=== PATIENT | female | born 1925 | race Caucasian/White ===

== ENCOUNTER 2017-01-29 06:29 | Day surgery (SDC) | payer MEDICARE ==
[2017-01-29] MEDS ORDERED: Sodium Chloride 0.9% 10 ML Syringe FLUSH PRN (07:00)
[2017-01-29 08:45] VITALS: BP 123/73
--- NOTE | 2017-01-29 11:25 | OR ---
DATE OF PROCEDURE: 01/29/2017 POSTOPERATIVE CARE: Postoperative care will be provided mainly at the [address] [place] [address] [facility] in conjunction with [facility]. PREOPERATIVE DIAGNOSIS: Cataract, right eye. PREOPERATIVE DIAGNOSIS: Cataract, right eye. PROCEDURE: Phacoemulsification with intraocular lens placement, right eye. ANESTHESIA: Topical and intracameral. ESTIMATED BLOOD LOSS: Minimal. COMPLICATIONS: None. PATHOLOGY SPECIMENS: None. SURGICAL FINDINGS: None. INDICATION FOR PROCEDURE: The patient is an 89-year-old female with history of a visually significant cataract in the right eye, which interfered with activities of daily living. This consisted of a nuclear sclerosis cataract. Following careful discussion of the risks, benefits and alternatives to cataract extraction with intraocular lens placement including blindness and , the patient elected to proceed, and informed, written consent was obtained prior to the procedure. DESCRIPTION OF THE PROCEDURE: The patient was previously identified, and a filiberto placed above the right eye. All sources, including the patient, indicated that the right eye was the correct eye. The patient was subsequently taken to the operating room where standard monitors were applied. The patient was then prepped and draped in the usual sterile fashion for ophthalmic surgery. Attention was first directed at the 12 o'clock position where a paracentesis port was fashioned. Shugar solution followed by Viscoat was instilled into the eye. Attention was then directed to the 8:30 position where a triplanar incision was made in a near-clear manner using a keratome. A continuous capsulorrhexis was then made using a combination of the cystotome and Utrata forceps. Hydrodissection was achieved using a balanced salt solution, and the lens rotated nicely. Phacoemulsification was then done using a modified [id number] technique without complication. Phaco time was 26.36 CDE. The remaining cortex was removed using the irrigation/aspiration handpiece. Provisc was then instilled into the eye. A Technis lens, model TM1089, at 24.0 diopters was then placed in the capsular bag using an [place] injector. The remaining viscoelastic was removed using the irrigation/aspiration forceps. All wounds were then checked and found to be watertight. The lid speculum and drapes were removed. Maxitrol ointment was placed in the patient's right eye, and the eye was shielded. The patient tolerated the procedure well. The patient was instructed to follow up tomorrow. All needle and sponge counts were correct at the end of the procedure. Daisy Root MD /[id number]
== END 2017-01-29 08:55 | disposition home or self-care (01) ==
LOC: JP.SDS 06:29
PROVIDERS: ATTEND Ophthalmology
DX: H26.9 Unspecified cataract (principal); Z95.0 Presence of cardiac pacemaker
CPT/HCPCS: 66984; C1780; J7050

== ENCOUNTER 2017-05-11 13:37 | Emergency (ER) | payer MEDICARE ==
[2017-05-11 15:36] VITALS: BP 129/69
--- NOTE | 2017-05-11 16:46 | EDM.PDOC ---
ED HPI GENERAL MEDICAL PROBLEM - General Chief Complaint: Back Pain or Injury Stated Complaint: PAIN IN LOWER BACK Time Seen by Provider: 05/11/17 16:48 Source of Information: Reports: Patient, Family History Limitations: Reports: No Limitations - History of Present Illness INITIAL COMMENTS - FREE TEXT/NARRATIVE: Pt arrived with pain in the lower lumbar area and into the rt hip. She did fall 3 weeks ago and did not have a problem until a few days ago. She was at [employer] yesterday and di alot of sitting. She had alot of pain in her low back and rt hip area. Onset: Gradual Duration: Day(s): Location: Reports: Lower Extremity, Right, Other (low back. ) Right Lower Back Pain Score (Numeric/FACES): 8 Right Hip Pain Score (Numeric/FACES): 5 - Related Data Allergies Allergy/AdvReac Type Severity Reaction Status Date / Time No Known Allergies Allergy Verified 01/29/17 06:56 Home Meds: Home Meds Aspirin [Halfprin] 81 mg PO DAILY 09/19/16 [History] Furosemide [Lasix] 20 mg PO DAILY 09/19/16 [History] Levothyroxine 75 mcg PO ACBREAKFAST 09/19/16 [History] Metoprolol Succinate [Toprol XL] 25 mg PO DAILY 09/19/16 [History] Potassium Chloride [K-Tab ER] 20 meq PO DAILY 09/19/16 [History] Simvastatin [Zocor] 40 mg PO DAILY 09/19/16 [History] Past Medical History HEENT History: Reports: Cataract, Impaired Vision Cardiovascular History: Reports: Heart Failure, High Cholesterol, Hypertension, Pacemaker Gastrointestinal History: Reports: 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: Musculoskeletal History: Reports: Arthritis Endocrine/Metabolic History: Reports: Hypothyroidism - Infectious Disease History Infectious Disease History: Reports: Measles, Mumps - Past Surgical History HEENT Surgical History: Reports: Cataract Surgery, Oral Surgery GI Surgical History: Reports: Appendectomy, Colonoscopy, EGD, Hernia Repair/ Other, Other (See Below) Endocrine Surgical History: Reports: None Musculoskeletal Surgical History: Reports: None Social & Family History - Tobacco Use Smoking Status *Q: Never Smoker Second Hand Smoke Exposure: No - Caffeine Use Caffeine Use: Reports: Coffee - Alcohol Use Days Per Week of Alcohol Use: 0 - Recreational Drug Use Recreational Drug Use: No ED ROS GENERAL - Review of Systems Review Of Systems: See Below Constitutional: Reports: No Symptoms HEENT: Reports: No Symptoms Respiratory: Reports: No Symptoms Cardiovascular: Reports: No Symptoms Endocrine: Reports: No Symptoms GI/Abdominal: Reports: No Symptoms : Reports: No Symptoms Musculoskeletal: Reports: Other (pain in her lower back. ) ED EXAM,LOWER BACK PAIN/INJURY - Physical Exam Exam: See Below Text/Narrative:: pt arrived with pain in her low back and rt hip. Exam Limited By: No Limitations General Appearance: Alert, Anxious, Moderate Distress Ears: Normal TMs Nose: Normal Inspection Throat/Mouth: Normal Inspection Head: Atraumatic Respiratory/Chest: No Respiratory Distress Cardiovascular: Regular Rate, Rhythm GI/Abdominal: Soft, Non-Tender (Female) Exam: Deferred Rectal (Female) Exam: Deferred Back Exam: Other (Pt is tender in the very low lumbar area. ) Extremities: Normal Inspection, Other ( She does not have severe pain when the hip is moved. ) Neurological: Alert Psychiatric: Normal Affect Course - Vital Signs Last Recorded V/S: Last Vital Signs Temp 36.6 C 05/11/17 14:46 Pulse 92 05/11/17 15:35 Resp 18 05/11/17 15:35 BP 129/69 05/11/17 15:35 Pulse Ox 95 05/11/17 15:35 - Orders/Labs/Meds Orders: Active Orders 24 hr Category Date Time Status Hip Min 2V or 3V w Pelvis Rt [CR] Stat Exams 05/11/17 14:55 Taken Lumbar Spine Min 4V [CR] Stat Exams 05/11/17 14:46 Taken UA W/MICROSCOPIC [URIN] Urgent Lab 05/11/17 14:47 Uncollected - Re-Assessments/Exams Free Text/Narrative Re-Assessment/Exam: 05/11/17 16:59 xrays were obtained which showed a compression change at s1 nd L2. Sh e states this pain comes and goes. Departure - Departure Time of Disposition: 16:43 Disposition: Home, Self-Care 01 Condition: Fair Clinical Impression: Compression fx, lumbar spine - Discharge Information Referrals: Fransico Vázquez MD [Primary Care Provider] - Forms: ED Department Discharge Care Plan Goals: compression fracture of the S! and L2-- use plain tylenol for pain, If poor relief try moist heat to the area and use norco 1/2 tab q6h prn for pain. 5/[address] Vázquez next week. - My Orders Last 24 Hours: My Active Orders 05/11/17 14:46 Lumbar Spine Min 4V [CR] Stat 05/11/17 14:47 UA W/MICROSCOPIC [URIN] Urgent 05/11/17 14:55 Hip Min 2V or 3V w Pelvis Rt [CR] Stat - Assessment/Plan Last 24 Hours: My Active Orders 05/11/17 14:46 Lumbar Spine Min 4V [CR] Stat 05/11/17 14:47 UA W/MICROSCOPIC [URIN] Urgent 05/11/17 14:55 Hip Min 2V or 3V w Pelvis Rt [CR] Stat
--- NOTE | 2017-05-13 09:08 | CR ---
Remote appearing fracture right inferior pubic ramus. Marked degenerative changes right hip. Right h ip is intact.
--- NOTE | 2017-05-13 09:15 | CR ---
Osteopenia. Superior endplate compression deformity L2 vertebral bodies age-indeterminate. Advanced disc height loss L5-S1. Moderate to advanced disc height loss L4-5, L3-4 and L2-3.
== END 2017-05-11 16:56 | disposition home or self-care (01) ==
LOC: JP.ED 13:37
DX: S32.029A Unspecified fracture of second lumbar vertebra, initial encounter for closed fracture (principal); H54.7 Unspecified visual loss; I11.0 Hypertensive heart disease with heart failure; I50.9 Heart failure, unspecified; E03.9 Hypothyroidism, unspecified; M19.90 Unspecified osteoarthritis, unspecified site; Z90.49 Acquired absence of other specified parts of digestive tract; Z79.82 Long term (current) use of aspirin; Z79.899 Other long term (current) drug therapy; Z98.49 Cataract extraction status, unspecified eye; Z95.0 Presence of cardiac pacemaker; Z98.890 Other specified postprocedural states; X50.1XXA Overexertion from prolonged static or awkward postures, initial encounter; W19.XXXA Unspecified fall, initial encounter
CPT/HCPCS: 72110; 72110-26; 73502-26-RT; 73502-RT; 99283; 99284

== ENCOUNTER 2017-05-21 08:18 | Inpatient (IN) | payer MEDICARE ==
[2017-05-21] MEDS ORDERED: Lactated Ringers 1,000 ML IV SCH ×2 (09:00→10:00)
--- NOTE | 2017-05-21 09:02 | EDM.PDOC ---
ED HPI GENERAL MEDICAL PROBLEM - General Chief Complaint: Abdominal Pain Stated Complaint: CAN'T SLEEP REILLY I AM BLOATED Time Seen by Provider: 05/21/17 08:54 Source of Information: Reports: Patient History Limitations: Reports: No Limitations - History of Present Illness INITIAL COMMENTS - FREE TEXT/NARRATIVE: pt is having pain in the mid tolower left abdoman. The pt is feeling quite bloated. Onset: Other (Pt has had pain for the last 3 days. ) Duration: Getting Worse, Intermittent Location: Reports: Abdomen Quality: Reports: Sharp, Stabbing Associated Symptoms: Reports: Diaphoresis, Fever/Chills, Loss of Appetite, Other (pt feels bloated. ) Abdominal Pain Score (Numeric/FACES): 10 - Related Data Allergies Allergy/AdvReac Type Severity Reaction Status Date / Time No Known Allergies Allergy Verified 05/21/17 09:52 Home Meds: Home Meds Aspirin [Halfprin] 81 mg PO DAILY 09/19/16 [History] Furosemide [Lasix] 20 mg PO DAILY 09/19/16 [History] Levothyroxine 75 mcg PO ACBREAKFAST 09/19/16 [History] Metoprolol Succinate [Toprol XL] 25 mg PO DAILY 09/19/16 [History] Potassium Chloride [K-Tab ER] 20 meq PO DAILY 09/19/16 [History] Simvastatin [Zocor] 40 mg PO DAILY 09/19/16 [History] Past Medical History HEENT History: Reports: Cataract, Impaired Vision Cardiovascular History: Reports: Heart Failure, High Cholesterol, Hypertension, Pacemaker Gastrointestinal History: Reports: None 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: Musculoskeletal History: Reports: Arthritis Endocrine/Metabolic History: Reports: Hypothyroidism - Infectious Disease History Infectious Disease History: Reports: Measles, Mumps - Past Surgical History HEENT Surgical History: Reports: Cataract Surgery, Oral Surgery GI Surgical History: Reports: Appendectomy, Colonoscopy, EGD, Hernia Repair/ Other, Other (See Below) Musculoskeletal Surgical History: Reports: None Social & Family History - Tobacco Use Smoking Status *Q: Never Smoker Second Hand Smoke Exposure: No - Caffeine Use Caffeine Use: Reports: Coffee, Soda, Tea - Alcohol Use Days Per Week of Alcohol Use: 0 - Recreational Drug Use Recreational Drug Use: No ED ROS GENERAL - Review of Systems Review Of Systems: See Below Constitutional: Reports: Fever, Chills, Malaise, Weakness HEENT: Reports: No Symptoms Respiratory: Reports: No Symptoms, Other (pt has noted a slight cough. ) Cardiovascular: Reports: No Symptoms Endocrine: Reports: No Symptoms GI/Abdominal: Reports: Abdominal Pain, Constipation, Other (pt does npot remember when he had her last stool. ) Musculoskeletal: Reports: No Symptoms Skin: Reports: No Symptoms Neurological: Reports: No Symptoms ED EXAM, GI/ABD - Physical Exam Exam: See Below Text/Narrative:: pt is pale appearing and slightly jaundiced. She is having abdomanal pain . She is having difficulty localizing the pain. She has been ill for about 3 days. She feel very bloated. Exam Limited By: No Limitations General Appearance: Alert, Anxious Eyes: Bilateral: Normal Appearance, EOMI Ears: Normal TMs Nose: Normal Inspection Throat/Mouth: Normal Inspection Head: Atraumatic Neck: Normal Inspection Respiratory/Chest: No Respiratory Distress GI/Abdominal: Tenderness, Other (pt has mid abdoman tenderness. She does not have rebound. ) (Female) Exam: Deferred Rectal (Female) Exam: Other ( No stool present in the rectum. No masses present. ) Back Exam: Normal Inspection Extremities: Normal Inspection Neurological: Alert, Oriented, Normal Cognition Psychiatric: Normal Affect Course - Vital Signs Last Recorded V/S: Last Vital Signs Temp 38.5 C H 05/21/17 11:05 Pulse 114 H 05/21/17 08:31 Resp 15 05/21/17 08:31 BP 127/90 05/21/17 08:31 Pulse Ox 94 L 05/21/17 08:31 - Orders/Labs/Meds Orders: Active Orders 24 hr Category Date Time Status Elena Catheter Insertion [Insert Urinary Catheter] [OM. Care 05/21/17 11:00 Ordered PC] Q24H Urinary Catheter Assessment [RC] ASDIRECTED Care 05/21/17 10:47 Active CULTURE BLOOD [BC] Urgent Lab 05/21/17 08:50 Received CULTURE BLOOD [BC] Urgent Lab 05/21/17 08:57 Received CULTURE URINE [RM] Stat Lab 05/21/17 09:55 Received Lactated Ringers [Ringers, Lactated] 1,000 ml Med 05/21/17 09:00 Active IV ASDIRECTED Lactated Ringers [Ringers, Lactated] 1,000 ml Med 05/21/17 10:00 Active IV ASDIRECTED Blood Culture x2 Reflex Set [OM.PC] Urgent Oth 05/21/17 08:52 Ordered Medication Orders Lactated Ringer's (Ringers, Lactated) 1,000 mls @ 999 mls/hr IV ASDIRECTED [place] Last Admin: 05/21/17 09:08 Dose: 999 mls/hr Lactated Ringer's (Ringers, Lactated) 1,000 mls @ 300 mls/hr IV ASDIRECTED [place] Last Admin: 05/21/17 10:40 Dose: 300 mls/hr Labs: Laboratory Tests 05/21/17 05/21/17 05/21/17 Range/Units 08:50 08:50 08:50 WBC 7.7 (4.5-11.0) K/uL RBC 3.72 (3.30-5.50) M/uL Hgb 11.8 L (12.0-15.0) g/dL Hct 38.8 (36.0-48.0) % MCV 104 H (80-98) fL MCH 32 H (27-31) pg MCHC 30 L (32-36) % Plt Count 152 (150-400) K/uL Neut % (Auto) 87 H (36-66) % Lymph % (Auto) 6 L (24-44) % [place] % (Auto) 6 (2-6) % Eos % (Auto) 0 L (2-4) % Baso % (Auto) 1 (0-1) % Sodium 140 (140-148) mmol/L Potassium 4.8 (3.6-5.2) mmol/L Chloride 99 L (100-108) mmol/L Carbon Dioxide 25 (21-32) mmol/L Anion Gap 20.8 H (5.0-14.0) mmol/L BUN 57 H D (7-18) mg/dL Creatinine 2.0 H D (0.6-1.0) mg/dL Est Cr Clr Drug Dosing TNP Estimated GFR (MDRD) 23 L (>60) Glucose 118 H (74-106) mg/dL Lactic Acid 9.5 H (0.4-2.0) mmol/L Calcium 8.4 L (8.5-10.1) mg/dL Total Bilirubin 5.1 H (0.2-1.0) mg/dL AST 979 H D (15-37) U/L ALT 600 H (12-78) U/L Alkaline Phosphatase 227 H (46-116) U/L Creatine Kinase (26-192) U/L C-Reactive Protein 6.45 H (0.0-0.3) mg/dL Olr-W-Ssppnqupuey Pept (5-450) pg/mL Total Protein 7.4 (6.4-8.2) g/dL Albumin 3.1 L (3.4-5.0) g/dL Globulin 4.3 H (2.3-3.5) g/dL Albumin/Globulin Ratio 0.7 L (1.2-2.2) Lipase (73-393) U/L Urine Color Urine Appearance Urine pH (4.5-8.0) Ur Specific [place] (1.008-1.030) Urine Protein (NEGATIVE) mg/dL Urine Glucose (UA) (NEGATIVE) mg/dL Urine Ketones (NEGATIVE) mg/dL Urine Occult Blood (NEGATIVE) Urine Nitrite (NEGATIVE) Urine Bilirubin (NEGATIVE) Urine Urobilinogen (NORMAL) mg/dL Ur Leukocyte Esterase (NEGATIVE) Urine RBC (0-5) Urine WBC (0-5) Ur Epithelial Cells Amorphous Sediment Urine Bacteria Urine Mucus 05/21/17 05/21/17 05/21/17 Range/Units 08:50 08:50 08:50 WBC (4.5-11.0) K/uL RBC (3.30-5.50) M/uL Hgb (12.0-15.0) g/dL Hct (36.0-48.0) % MCV (80-98) fL MCH (27-31) pg MCHC (32-36) % Plt Count (150-400) K/uL Neut % (Auto) (36-66) % Lymph % (Auto) (24-44) % [place] % (Auto) (2-6) % Eos % (Auto) (2-4) % Baso % (Auto) (0-1) % Sodium (140-148) mmol/L Potassium (3.6-5.2) mmol/L Chloride (100-108) mmol/L Carbon Dioxide (21-32) mmol/L Anion Gap (5.0-14.0) mmol/L BUN (7-18) mg/dL Creatinine (0.6-1.0) mg/dL Est Cr Clr Drug Dosing Estimated GFR (MDRD) (>60) Glucose (74-106) mg/dL Lactic Acid (0.4-2.0) mmol/L Calcium (8.5-10.1) mg/dL Total Bilirubin (0.2-1.0) mg/dL AST (15-37) U/L ALT (12-78) U/L Alkaline Phosphatase (46-116) U/L Creatine Kinase 120 (26-192) U/L C-Reactive Protein (0.0-0.3) mg/dL Avp-R-Tygcoeospfq Pept 82807 H (5-450) pg/mL Total Protein (6.4-8.2) g/dL Albumin (3.4-5.0) g/dL Globulin (2.3-3.5) g/dL Albumin/Globulin Ratio (1.2-2.2) Lipase 161 (73-393) U/L Urine Color Urine Appearance Urine pH (4.5-8.0) Ur Specific [place] (1.008-1.030) Urine Protein (NEGATIVE) mg/dL Urine Glucose (UA) (NEGATIVE) mg/dL Urine Ketones (NEGATIVE) mg/dL Urine Occult Blood (NEGATIVE) Urine Nitrite (NEGATIVE) Urine Bilirubin (NEGATIVE) Urine Urobilinogen (NORMAL) mg/dL Ur Leukocyte Esterase (NEGATIVE) Urine RBC (0-5) Urine WBC (0-5) Ur Epithelial Cells Amorphous Sediment Urine Bacteria Urine Mucus 05/21/17 Range/Units 09:24 WBC (4.5-11.0) K/uL RBC (3.30-5.50) M/uL Hgb (12.0-15.0) g/dL Hct (36.0-48.0) % MCV (80-98) fL MCH (27-31) pg MCHC (32-36) % Plt Count (150-400) K/uL Neut % (Auto) (36-66) % Lymph % (Auto) (24-44) % [place] % (Auto) (2-6) % Eos % (Auto) (2-4) % Baso % (Auto) (0-1) % Sodium (140-148) mmol/L Potassium (3.6-5.2) mmol/L Chloride (100-108) mmol/L Carbon Dioxide (21-32) mmol/L Anion Gap (5.0-14.0) mmol/L BUN (7-18) mg/dL Creatinine (0.6-1.0) mg/dL Est Cr Clr Drug Dosing Estimated GFR (MDRD) (>60) Glucose (74-106) mg/dL Lactic Acid (0.4-2.0) mmol/L Calcium (8.5-10.1) mg/dL Total Bilirubin (0.2-1.0) mg/dL AST (15-37) U/L ALT (12-78) U/L Alkaline Phosphatase (46-116) U/L Creatine Kinase (26-192) U/L C-Reactive Protein (0.0-0.3) mg/dL Ceh-J-Wgfgzjqgnpq Pept (5-450) pg/mL Total Protein (6.4-8.2) g/dL Albumin (3.4-5.0) g/dL Globulin (2.3-3.5) g/dL Albumin/Globulin Ratio (1.2-2.2) Lipase (73-393) U/L Urine Color Yellow Urine Appearance Slightly cloudy Urine pH 5.0 (4.5-8.0) Ur Specific [place] 1.025 (1.008-1.030) Urine Protein 500 H (NEGATIVE) mg/dL Urine Glucose (UA) Normal (NEGATIVE) mg/dL Urine Ketones Negative (NEGATIVE) mg/dL Urine Occult Blood Large (NEGATIVE) Urine Nitrite Negative (NEGATIVE) Urine Bilirubin Moderate (NEGATIVE) Urine Urobilinogen 8 (NORMAL) mg/dL Ur Leukocyte Esterase Negative (NEGATIVE) Urine RBC 5-10 H (0-5) Urine WBC 0-5 (0-5) Ur Epithelial Cells Rare Amorphous Sediment Many Urine Bacteria Not seen Urine Mucus Not seen Meds: Medications Generic Name Dose Route Start Last Admin Trade Name Freq PRN Reason Stop Dose Admin Lactated Ringer's 1,000 mls @ 999 mls/hr 05/21/17 09:00 05/21/17 09:08 Ringers, Lactated IV 999 mls/hr ASDIRECTED [place] Administration Lactated Ringer's 1,000 mls @ 300 mls/hr 05/21/17 10:00 05/21/17 10:40 Ringers, Lactated IV 300 mls/hr ASDIRECTED [place] Administration Discontinued Medications Generic Name Dose Route Start Last Admin Trade Name Billie PRN Reason Stop Dose Admin Acetaminophen 650 mg 05/21/17 10:45 05/21/17 11:06 Tylenol RECTAL 05/21/17 10:46 650 mg NOW ONE Administration Bupivacaine HCl/Epinephrine Bitart Confirm 05/21/17 11:49 Marcaine 0.5%/Epinephrine 1:200,000 Administered 05/21/17 11:50 Dose 50 ml .ROUTE .STK-MED ONE Dexamethasone Confirm 05/21/17 12:00 Dexamethasone Administered 05/21/17 12:01 Dose 4 mg .ROUTE .STK-MED ONE Fentanyl Confirm 05/21/17 12:00 Sublimaze Administered 05/21/17 12:01 Dose 250 mcg .ROUTE .STK-MED ONE Glycopyrrolate Confirm 05/21/17 12:00 Administered 05/21/17 12:01 Dose 1 mg .ROUTE .STK-MED ONE Ampicillin Sodium/Sulbactam 100 mls @ 200 mls/hr 05/21/17 10:00 05/21/17 10: 05 Sodium 3 gm/ Sodium Chloride IV 05/21/17 10:29 200 mls/hr ONETIME ONE Administration Aztreonam/Dextrose 1 gm/ 50 mls @ 100 mls/hr 05/21/17 10:30 05/21/17 10:41 Premix IV 05/21/17 10:59 100 mls/hr ONETIME ONE Administration Neostigmine Methylsulfate Confirm 05/21/17 12:00 Neostigmine Administered 05/21/17 12:01 Dose 5 mg .ROUTE .STK-MED ONE Ondansetron HCl Confirm 05/21/17 12:00 Zofran Administered 05/21/17 12:01 Dose 4 mg .ROUTE .STK-MED ONE Phenylephrine HCl Confirm 05/21/17 12:00 Valdemar-Synephrine Administered 05/21/17 12:01 Dose 10 mg .ROUTE .STK-MED ONE Rocuronium Joffre Confirm 05/21/17 12:00 Zemuron Administered 05/21/17 12:01 Dose 50 mg .ROUTE .STK-MED ONE Succinylcholine Chloride Confirm 05/21/17 12:00 Succinylcholine In Ns Pf Administered 05/21/17 12:01 Dose 200 mg .ROUTE .STK-MED ONE - Re-Assessments/Exams Free Text/Narrative Re-Assessment/Exam: 05/21/17 10:48 pt has elevated liver enzymes. Her wbc is not high, mainly segs, her crp is elevated. Her lactic acid is greater than 9. A liter of lactated ringers was given in bolus and a second one was hung, azactam 1 gm iv was given and unisyn3 gm was given iv. 05/21/17 12:07 cat scan of the abdoman did not reveal any acute findings. Us of the abdomn showed some probale thicking of the gb wall and possible stones in the gb. Departure - Departure Time of Disposition: 11:00 Disposition: Admitted As Inpatient 68 Condition: Fair Clinical Impression: Sepsis, Dehydration fever, Renal insufficiency, Elevated liver enzymes - Discharge Information - My Orders Last 24 Hours: My Active Orders 05/21/17 08:50 CULTURE BLOOD [BC] Urgent 05/21/17 08:52 Blood Culture x2 Reflex Set [OM.PC] Urgent 05/21/17 08:57 CULTURE BLOOD [BC] Urgent 05/21/17 09:00 Lactated Ringers [Ringers, Lactated] 1,000 ml IV ASDIRECTED 05/21/17 09:55 CULTURE URINE [RM] Stat 05/21/17 10:00 Lactated Ringers [Ringers, Lactated] 1,000 ml IV ASDIRECTED 05/21/17 10:47 Urinary Catheter Assessment [RC] ASDIRECTED 05/21/17 11:00 Elena Catheter Insertion [Insert Urinary Catheter] [OM.PC] Q24H - Assessment/Plan Last 24 Hours: My Active Orders 05/21/17 08:50 CULTURE BLOOD [BC] Urgent 05/21/17 08:52 Blood Culture x2 Reflex Set [OM.PC] Urgent 05/21/17 08:57 CULTURE BLOOD [BC] Urgent 05/21/17 09:00 Lactated Ringers [Ringers, Lactated] 1,000 ml IV ASDIRECTED 05/21/17 09:55 CULTURE URINE [RM] Stat 05/21/17 10:00 Lactated Ringers [Ringers, Lactated] 1,000 ml IV ASDIRECTED 05/21/17 10:47 Urinary Catheter Assessment [RC] ASDIRECTED 05/21/17 11:00 Elena Catheter Insertion [Insert Urinary Catheter] [OM.PC] Q24H
--- NOTE | 2017-05-21 09:31 | CR ---
Chest 1V Frontal INDICATION: fever FINDINGS: No comparison. Left-sided pacemaker in place. Cardiomegaly. Moderate pulmonary venous hype rtension. Mild interstitial infiltrates with small bilateral pleural effusions, larger on the right. Findings consistent with CHF.
[2017-05-21] MEDS ORDERED: Ampicillin/Sulbactam Na 3 GM in Sodium Chloride 0.9% 100 ML IV ONE ×2 (09:42→10:00)
[2017-05-21] MEDS: Aztreonam/Dextrose-Water 1 GM in Premix Bag 1 BAG IV ONE ×2 (10:40→10:41)
[2017-05-21] MEDS ORDERED: Acetaminophen 650 MG Supp RECTAL ONE (10:45)
--- NOTE | 2017-05-21 11:14 | CT ---
Abdomen Pelvis wo Cont Total DLP 543 mGycm. INDICATION: pain, elevated liver enzymes. COMPARISON: Ultrasound from earlier today. FINDINGS: Marked cardiomegaly. Pacemaker or ICD in place. Moderate right and small left pleural effu sions. Lack of IV contrast limits solid organ evaluation. Punctate calcification in the gallbladder. 16 mm cystic structure in the mid body the pancreas better appreciated by ultrasound. 11 mm low-att enuation lesion near the pancreatic head better appreciated by ultrasound. Small amount of ascites t hroughout the abdomen and pelvis. Mild anasarca. Fat-containing inguinal hernias. Mild distention of the bladder. Colonic diverticula but no evidence for acute diverticulitis. Esophageal hiatal hernia . Arterial calcifications. Mildly prominent trevon hepatis and retroperitoneal lymph nodes are nonspe cific. Mild depression of the superior endplate of L2, age indeterminant. Mild thoracolumbar curve. Exam otherwise unremarkable. IMPRESSION: 1. Probable CHF. 2. Mild ascites throughout the abdomen. 3. 16 mm and 11 mm low-attenuation lesions in the pancreas cannot be further evaluated without IV co ntrast. 4. Mild anasarca. 5. Incidental findings as above.
--- NOTE | 2017-05-21 11:19 | US ---
Abdomen Ltd INDICATION: abdomanal pain, elevated liver enzymes. FINDINGS: Normal hepatic echotexture. Common bile duct is dilated measuring 9 mm. There is a questi onable thickened gallbladder wall measuring 4 mm. Gallbladder stones. Negative sonographic Durbin si gn. 1.8 cm cyst in the mid by the pancreas and 0.9 cm isoechoic lesion near the head of the pancreas . Mild atrophy of the right kidney. Mild amount of ascites throughout the abdomen and pelvis. Aorta and IVC are normal where seen. IMPRESSION: 1. Questionable thickened gallbladder wall with a gallbladder containing stones and common bile duct dilatation. Negative sonographic Durbin sign. Findings suggest, but are not diagnostic for, acute c holecystitis. Choledocholithiasis is not excluded. 2. Ascites. Consider further evaluation with CT with IV contrast. ERCP may also be helpful if clinically indicat ed.
[2017-05-21] MEDS ORDERED: Bupivacaine 0.5%/EPINEPHrine 1:200,000 50 ML MDV ONE (11:49)
[2017-05-21] MEDS ORDERED: Dexamethasone 4 MG/ML SDV ONE (12:00)
[2017-05-21] MEDS ORDERED: Ondansetron 4 MG/2 ML SDV ONE (12:00)
[2017-05-21] MEDS ORDERED: fentaNYL 250 MCG/5 ML SDV ONE (12:00)
[2017-05-21] MEDS ORDERED: Phenylephrine 1% 10 MG/ML SDV ONE (12:00)
[2017-05-21] MEDS ORDERED: Succinylcholine/Normal Saline 200 MG/10 ML Syringe ONE (12:00)
[2017-05-21] MEDS ORDERED: Rocuronium 50 MG/5 ML Vial ONE (12:00)
[2017-05-21] MEDS ORDERED: Neostigmine Methylsulfate 1 MG/ML 5 ML Syringe ONE (12:00)
[2017-05-21] MEDS ORDERED: Propofol 200 MG/20 ML SDV ONE (12:05)
[2017-05-21] MEDS ORDERED: Ondansetron 4 MG/2 ML SDV IV PRN (14:24)
[2017-05-21] MEDS ORDERED: Scopolamine 1.5 MG Transdermal Patch TOP PRN (14:24)
[2017-05-21] MEDS ORDERED: Promethazine 25 MG/ML SDV IV PRN (14:24)
[2017-05-21] MEDS ORDERED: diphenhydrAMINE 50 MG/ML SDV IV PRN (14:25)
[2017-05-21] MEDS ORDERED: diphenhydrAMINE 25 MG Cap PO PRN (14:26)
[2017-05-21] MEDS ORDERED: Nicotine 14 MG/24 Hr Patch TRDERM PRN (14:26)
[2017-05-21] MEDS ORDERED: Sodium Chloride 0.9% 1,000 ML IV SCH ×2 (14:30→18:15)
[2017-05-21] MEDS: Ampicillin/Sulbactam Na 1.5 GM in Sodium Chloride 0.9% 50 ML IV SCH ×2 (17:06→22:20)
[2017-05-21] MEDS: Metoprolol Tartrate 25 MG Tab PO SCH ×2 (17:06→22:18)
[2017-05-21] MEDS: Aztreonam/Dextrose-Water 1 GM in Premix Bag 1 BAG IV SCH (17:50)
--- NOTE | 2017-05-21 18:00 | PCM.HP ---
H&P History of Present Illness - General Date of Service: 05/21/17 Admit Problem/Dx: Admission Diagnosis/Problem Admission Diagnosis/Problem Abdominal bloating Source of Information: Patient, Family, Provider, RN Notes Reviewed History Limitations: Reports: No Limitations - History of Present Illness Initial Comments - Free Text/Narative: This patient is an 89-year-old woman who is admitted through the emergency department with progressive weakness and lactic acidosis. Symptoms have progressed over the past week which she states that they been developing for some time. She has a known history of congestive heart failure, prior to today most recent echocardiogram showed an ejection fraction of 20% with global left ventricular hypokinesis. She denies recent symptoms of chest pain or pressure but has noted progressive shortness of breath. She denies peripheral edema as well as PND and orthopnea. On initial evaluation in the emergency department she had a marked elevation in lactic acid level at 9.5, normal white blood cell count, but elevated temperature. Also found was significant elevation in liver enzymes including her bilirubin which was elevated at 6.5 concern was that she had ischemic bowel or necrotic gallbladder. She was seen and evaluated by Dr. Acosta and taken to the operating room for exploratory laparoscopies. Surgery showed dusky appearance of the intestine as well as the liver, no manuel necrotic bowel was identified or obvious inflammation around the gallbladder. Liver biopsy was obtained and ascitic fluid removed for culture. Concern at that time was for possible mesenteric ischemia secondary to atherosclerotic disease versus decreased left ventricular function. Repeat echo was obtained almost as soon as she arrived in the intensive care unit. Echo today shows severely decreased left ventricular function with estimated ejection fraction in the range of 10-15%. There was severe mitral regurgitation, moderate to severe tricuspid regurgitation, biatrial enlargement, left ventricular enlargement, and elevation in right-sided pressures. Results have been discussed with patient and family, she wants to be DNR/DNI. She does not want further aggressive interventions but is willing to try medication and fluids. Abdominal Pain Score (Numeric/FACES): 4 - Related Data Allergies/Adverse Reactions: Allergies Allergy/AdvReac Type Severity Reaction Status Date / Time No Known Allergies Allergy Verified 05/21/17 09:52 Home Medications: Home Meds Aspirin [Halfprin] 81 mg PO DAILY 09/19/16 [History] Furosemide [Lasix] 20 mg PO DAILY 11/11/16 [History] Levothyroxine 75 mcg PO ACBREAKFAST 09/19/16 [History] Metoprolol Succinate [Toprol XL] 25 mg PO DAILY 09/19/16 [History] Potassium Chloride [K-Tab ER] 20 meq PO DAILY 09/19/16 [History] Simvastatin [Zocor] 40 mg PO DAILY 09/19/16 [History] Past Medical History HEENT History: Reports: Cataract, Impaired Vision Cardiovascular History: Reports: Heart Failure, High Cholesterol, Hypertension, Pacemaker Gastrointestinal History: Reports: None 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: Musculoskeletal History: Reports: Arthritis Endocrine/Metabolic History: Reports: Hypothyroidism - Infectious Disease History Infectious Disease History: Reports: Measles, Mumps - Past Surgical History HEENT Surgical History: Reports: Cataract Surgery, Oral Surgery GI Surgical History: Reports: Appendectomy, Colonoscopy, EGD, Hernia Repair/ Other, Other (See Below) Musculoskeletal Surgical History: Reports: None Social & Family History - Tobacco Use Smoking Status *Q: Never Smoker Second Hand Smoke Exposure: No - Caffeine Use Caffeine Use: Reports: Coffee - Alcohol Use Days Per Week of Alcohol Use: 0 - Recreational Drug Use Recreational Drug Use: No H&P Review of Systems - Review of Systems: Review Of Systems: See Below General: Reports: Fever, Weakness. Denies: Chills HEENT: Reports: No Symptoms Pulmonary: Reports: Shortness of Breath. Denies: Wheezing, Pleuritic Chest Pain , Cough, Sputum, Hemoptysis Cardiovascular: Reports: Dyspnea on Exertion. Denies: Chest Pain, Palpitations , Orthopnea, PND, Edema, Lightheadedness Gastrointestinal: Reports: Abdominal Pain, Anorexia, Distension, Nausea. Denies : Black Stool, Bloody Stool, Constipation, Diarrhea, Vomiting Genitourinary: Reports: No Symptoms Musculoskeletal: Reports: No Symptoms Skin: Reports: No Symptoms Psychiatric: Reports: No Symptoms Neurological: Reports: No Symptoms Hematologic/Lymphatic: Reports: No Symptoms Immunologic: Reports: No Symptoms Exam - Exam Exam: See Below - Vital Signs Vital Signs: Last Vital Signs Temp 96.9 F 05/21/17 16:00 Pulse 86 05/21/17 17:06 Resp 27 H 05/21/17 17:00 BP 121/61 05/21/17 17:06 Pulse Ox 100 05/21/17 17:00 Weight: 123 lb 10.869 oz - Exam Quality Assessment: DVT Prophylaxis General: Alert, Oriented, 4 HEENT: Conjunctiva Clear, Hearing Intact, Nares Patent, Normal Nasal Septum, Posterior Pharynx Clear, Pupils Equal. No: Mucosa Moist & [place] Neck: Supple, Trachea Midline, +2 Carotid Pulse wo Bruit Lungs: Clear to Auscultation, Normal Respiratory Effort Cardiovascular: Regular Rhythm, Normal S1, Normal S2, Tachycardia, Systolic Murmur. No: Irregular Rhythm, Bradycardia Abdomen: Normal Bowel Sounds, Soft, Distention, Tenderness. No: Organomegaly, Guarding, Rigidity, Rebound Back Exam: Normal Inspection, Full Range of Motion, NT Extremities: 3, Normal Inspection, 10 Skin: Warm, Dry, Intact Neurological: Cranial Nerves Intact, Strength Equal Bilateral, Normal Speech, Normal Tone, Sensation Intact. No: Focal Deficit Neuro Extensive - Mental Status: Alert, Oriented x3, Normal Mood/Affect, Normal Cognition, Memory Intact - Patient Data Lab Results Last 24 hrs: Laboratory Results - last 24 hr 05/21/17 05/21/17 Range/Units 14:08 14:08 Puncture Site Lt radial ABG pH 7.349 L (7.350-7.450) ABG pCO2 38.5 (35.0-42.0) mmHg ABG pO2 96.7 (75.0-100.0) mmHg ABG HCO3 20.7 L (22.0-26.0) mmol/L ABG Total CO2 19.3 L (21.0-25.0) mmol/L ABG O2 Saturation 95.8 (95.0-98.0) % ABG O2 Content 13.9 L (15.0-23.0) %vol ABG Base Excess -4.0 mm/L ABG Hemoglobin 10.4 L (12.0-16.0) g/dL ABG Oxyhemoglobin 94.5 % ABG Carboxyhemoglobin 0.7 (0.0-1.6) % ABG Methemoglobin 0.7 % Alli Test Pass O2 Delivery Device Nasal cannula Oxygen Flow Rate 6 L Lactic Acid 6.3 H (0.4-2.0) mmol/L Result Diagrams: 05/21/17 08:50 05/21/17 08:50 *Q Meaningful Use (ADM) - VTE *Q VTE Criteria *Q: - VTE Risk Assess *Q Each Risk Factor Represents 1 Point: Congestive Heart Failure, Less than 1 Month Total Score 1 Point Risk Factors: 1 Each Risk Factor Represents 2 Points: None Total Score 2 Point Risk Factors: 0 Each Risk Factor Represents 3 Points: Age 75 Years or Greater Total Score 3 Point Risk Factors: 3 Each Risk Factor Represents 5 Points: None Total Score 5 Point Risk Factors: 0 Venous Thromboembolism Risk Factor Score *Q: 4 - Stroke *Q Stroke Criteria *Q: - AMI *Q AMI Criteria *Q: Problem List Initiated/Reviewed/Updated: Yes Orders Last 24hrs: Active Orders 24 hr Category Date Time Status Patient Status [ADT] Routine ADT 05/21/17 13:59 Active Vital Signs [RC] PER UNIT ROUTINE Care 05/21/17 14:29 Active Nothing Per Oral Diet [DIET] Diet 05/21/17 Dinner Active BASIC METABOLIC PANEL,BMP [CHEM] Routine Lab 05/22/17 05:11 Ordered BASIC METABOLIC PANEL,BMP [CHEM] Stat Lab 05/21/17 20:00 Ordered BASIC METABOLIC PANEL,BMP [CHEM] Timed Lab 05/22/17 05:00 Ordered CBC W/O DIFF,HEMOGRAM [HEME] Routine Lab 05/22/17 05:11 Ordered CBC WITH AUTO DIFF [HEME] Timed Lab 05/22/17 05:00 Ordered LACTIC ACID [CHEM] Stat Lab 05/21/17 20:00 Ordered LACTIC ACID [CHEM] Timed Lab 05/22/17 05:00 Ordered PH,VENOUS [BG] Timed Lab 05/22/17 05:00 Ordered TSH ULTRASENSITIVE [CHEM] Timed Lab 05/22/17 05:00 Ordered Ampicillin/Sulbactam Na [Unasyn] 1.5 gm Med 05/21/17 16:30 Active Sodium Chloride 0.9% [Normal Saline] 50 ml IV Q6H Aspirin [Halfprin] Med 05/22/17 09:00 Ordered 81 mg PO DAILY Aztreonam/Dextrose-Water [Azactam in Dextrose,Iso- Med 05/21/17 18:00 Active Osmotic 1 GM/50 ML] 1 gm Premix Bag 1 bag IV Q8H Levothyroxine Med 05/22/17 07:30 Ordered 75 mcg PO ACBREAKFAST Metoprolol Tartrate [Lopressor] Med 05/21/17 16:30 Active 12.5 mg PO Q6H Morphine Med 05/21/17 14:27 Active 1 - 3 mg IV Q1H PRN Nicotine [Habitrol] Med 05/21/17 14:26 Active 14 mg TRDERM Q24H PRN Ondansetron [Zofran] Med 05/21/17 14:24 Active 4 mg IV Q8H PRN Promethazine [Phenergan] Med 05/21/17 14:24 Active 12.5 - 25 mg IV Q8H PRN Scopolamine [Transderm-Scop] Med 05/21/17 14:24 Active 1.5 mg TOP Q72H PRN Sodium Chloride 0.9% [Normal Saline] 1,000 ml Med 05/21/17 14:30 Active IV ASDIRECTED diphenhydrAMINE [Benadryl] Med 05/21/17 14:26 Active 0 mg PO Q4H PRN diphenhydrAMINE [Benadryl] Med 05/21/17 14:25 Active 25 - 50 mg IV Q4H PRN fentaNYL [Sublimaze] Med 05/21/17 14:27 Active 10 - 30 mcg IV Q1H PRN Sequential Compression Device [OM.PC] Routine Oth 05/21/17 14:38 Ordered Resuscitation Status Routine Resus Stat 05/21/17 17:15 Ordered Medication Orders Aspirin (Halfprin) 81 mg PO DAILY [place] Diphenhydramine HCl (Benadryl) 25 - 50 mg IV Q4H PRN PRN Reason: ITCHING Diphenhydramine HCl (Benadryl) 0 mg PO Q4H PRN PRN Reason: ITCHING Fentanyl (Sublimaze) 10 - 30 mcg IV Q1H PRN PRN Reason: PAIN Sodium Chloride (Normal Saline) 1,000 mls @ 125 mls/hr IV ASDIRECTED [facility] Last Admin: 05/21/17 14:44 Dose: 125 mls/hr Ampicillin Sodium/Sulbactam (Sodium 1.5 gm/ Sodium Chloride) 50 mls @ 100 mls/ hr IV Q6H [facility] Last Admin: 05/21/17 17:06 Dose: 100 mls/hr Aztreonam/Dextrose 1 gm/ (Premix) 50 mls @ 100 mls/hr IV Q8H [facility] Last Admin: 05/21/17 17:50 Dose: 100 mls/hr Levothyroxine Sodium (Levothyroxine) 75 mcg PO ACBREAKFAST [facility] Metoprolol Tartrate (Lopressor) 12.5 mg PO Q6H [place] Last Admin: 05/21/17 17:06 Dose: 12.5 mg Morphine Sulfate (Morphine) 1 - 3 mg IV Q1H PRN PRN Reason: PAIN Nicotine (Habitrol) 14 mg TRDERM Q24H PRN PRN Reason: SMOKING CESSATION Ondansetron HCl (Zofran) 4 mg IV Q8H PRN PRN Reason: N/V Promethazine HCl (Phenergan) 12.5 - 25 mg IV Q8H PRN PRN Reason: N/V Scopolamine (Transderm-Scop) 1.5 mg TOP Q72H PRN PRN Reason: N/V Assessment/Plan Comment:: ASSESSMENT AND PLAN LACTIC ACIDOSIS-likely secondary to dehydration as well as poor perfusion related to severely decreased left ventricular function. Diagnostic laparoscopy performed by Dr. Acosta showing no overt necrotic bowel or gallbladder. -Cautious hydration with IV fluids -Recheck lactic acid level later tonight and again in a.m. -Management of congestive failure is below CONGESTIVE HEART FAILURE-severely decreased left ventricular function estimated at 10-15%. Associated with severe mitral regurgitation and moderate to severe tricuspid regurgitation, elevation in right-sided pressures. -Hold diuretic therapy, reassess in a.m. -Metoprolol 12.5 mg by mouth every 6 hours, increase dose if she remains stable -Consider addition of ELVIRA inhibitor therapy if renal function improves -Also consider trial of dobutamine ELEVATED LIVER ENZYMES-likely secondary to liver injury associated with poor perfusion. No obvious gallbladder inflammation identified at surgery but she is noted to have temperature elevation. -Blood cultures pending -IV fluids as above as well as management of CHF -Continue IV antibiotic therapy with Unasyn and Azactam CHRONIC KIDNEY DISEASE STAGE III WITH ACUTE KIDNEY INJURY-likely secondary to poor perfusion -IV fluids as above -Closely monitor urine output and renal function HYPOTHYROIDISM -TSH in a.m. -Continue outpatient dosing of Lovenox PALLIATIVE CARE-she would like medical therapy but is not overly interested in aggressive interventions. She wishes to be DNR/DNI and does not want intubation or mechanical ventilation. MAINTENANCE ISSUES -DVT prophylaxis; Lovenox 30 mg subcutaneous daily -GI prophylaxis; Protonix 40 mg IV daily -Elena catheter; place to closely monitor urine output -Nutrition; per Dr. Acosta -Nicotine dependence; not required CODE STATUS-DNR/DNI ADMISSION STATUS-patient will be admitted to inpatient status, expect at least a 2 night hospital stay for evaluation and management of problems as outlined above. At the time of this admission I do not reasonably expected evaluation and management of this problem will require more than a 96 hour hospital stay. DISPOSITION-anticipate discharge to home after the hospital stay. PRIMARY CARE PROVIDER-Dr. Vázquez
[2017-05-21] MEDS ORDERED: Enoxaparin 30 MG/0.3 ML Syringe SUBCUT SCH (18:15)
[2017-05-21] MEDS: Pantoprazole 40 MG Vial IVPUSH SCH (18:34)
[2017-05-21] MEDS: fentaNYL 100 MCG/2 ML SDV IV PRN ×4 (20:44→23:56)
[2017-05-21] MEDS ORDERED: Aztreonam 1 GM in Sodium Chloride 0.9% 100 ML IV SCH (22:00)
[2017-05-22] MEDS: Morphine 2 MG/ML Syringe IV PRN ×2 (00:50→22:44)
[2017-05-22] MEDS: Aztreonam/Dextrose-Water 1 GM in Premix Bag 1 BAG IV SCH (02:23)
[2017-05-22] MEDS: Ampicillin/Sulbactam Na 1.5 GM in Sodium Chloride 0.9% 50 ML IV SCH (04:17)
[2017-05-22] MEDS: Metoprolol Tartrate 25 MG Tab PO SCH ×3 (05:55→16:24)
[2017-05-22] MEDS ORDERED: 50% Dextrose in Water 50 ML Syringe IVPUSH ONE (06:45)
[2017-05-22] MEDS: Aspirin 81 MG Tab.EC PO SCH (08:51)
[2017-05-22] MEDS: Levothyroxine 75 MCG Tab PO SCH (08:51)
[2017-05-22] MEDS ORDERED: DOBUTamine/Dextrose 5%-Water 500 MG/250 ML BAG IV SCH (09:45)
[2017-05-22] MEDS ORDERED: Sodium Chloride 0.9% 1,000 ML IV SCH ×3 (10:00→21:30)
--- NOTE | 2017-05-22 10:32 | PCM.PN ---
- General Info Date of Service: 05/22/17 Functional Status: Reports: pain controlled - Review of Systems General: Reports: Weakness. Denies: Fever, Chills Pulmonary: Reports: shortness of breath. Denies: pleuritic chest pain, cough, sputum, hemoptysis, wheezing Cardiovascular: Reports: Dyspnea on Exertion, Lightheadedness. Denies: Chest Pain, Palpitations, Orthopnea, PND Gastrointestinal: Reports: Abdominal pain. Denies: Diarrhea, Difficulty swallowing, Nausea, Vomiting Systems Review Comment:: Ms. Abdi has had ongoing difficulty with her congestive heart failure and poor peripheral perfusion. Lactic acid level did improve transiently with IV fluids, level this morning was elevated further again in the range of 6. Renal function is been poor with minimal urine output. She reports shortness of breath with minimal exertion, abdominal pain has been well controlled. - Patient Data Vitals - most recent: Last Vital Signs Temp 99.5 F 05/22/17 07:33 Pulse 68 05/22/17 10:23 Resp 16 05/22/17 09:00 BP 112/58 L 05/22/17 10:23 Pulse Ox 94 L 05/22/17 09:00 Weight - most recent: 124 lb 1.924 oz I&O - last 24 hours: Intake & Output 05/21/17 05/22/17 05/22/17 22:59 06:59 14:59 Intake Total 523 911 Output Total 157 61 20 Balance 366 850 -20 Lab Results last 24 hrs: Laboratory Results - last 24 hr 05/21/17 05/21/17 05/21/17 Range/Units 14:08 14:08 19:56 WBC (4.5-11.0) K/uL RBC (3.30-5.50) M/uL Hgb (12.0-15.0) g/dL Hct (36.0-48.0) % MCV (80-98) fL MCH (27-31) pg MCHC (32-36) % Plt Count (150-400) K/uL Neut % (Auto) (36-66) % Lymph % (Auto) (24-44) % [place] % (Auto) (2-6) % Eos % (Auto) (2-4) % Baso % (Auto) (0-1) % Puncture Site Lt radial ABG pH 7.349 L (7.350-7.450) ABG pCO2 38.5 (35.0-42.0) mmHg ABG pO2 96.7 (75.0-100.0) mmHg ABG HCO3 20.7 L (22.0-26.0) mmol/L ABG Total CO2 19.3 L (21.0-25.0) mmol/L ABG O2 Saturation 95.8 (95.0-98.0) % ABG O2 Content 13.9 L (15.0-23.0) %vol ABG Base Excess -4.0 mm/L ABG Hemoglobin 10.4 L (12.0-16.0) g/dL ABG Oxyhemoglobin 94.5 % ABG Carboxyhemoglobin 0.7 (0.0-1.6) % ABG Methemoglobin 0.7 % Alli Test Pass VBG pH (7.350-7.450) O2 Delivery Device Nasal cannula Oxygen Flow Rate 6 L Sodium 140 (140-148) mmol/L Potassium 4.4 (3.6-5.2) mmol/L Chloride 103 (100-108) mmol/L Carbon Dioxide 30 (21-32) mmol/L Anion Gap 7.5 (5.0-14.0) mmol/L BUN 59 H (7-18) mg/dL Creatinine 1.6 H (0.6-1.0) mg/dL Est Cr Clr Drug Dosing 18.85 mL/min Estimated GFR (MDRD) 30 L (>60) Glucose 117 H (74-106) mg/dL Lactic Acid 6.3 H (0.4-2.0) mmol/L Calcium 7.8 L (8.5-10.1) mg/dL TSH, Ultra Sensitive (0.358-3.740) uIU/mL 05/21/17 05/22/17 05/22/17 Range/Units 19:56 06:01 06:01 WBC 7.6 (4.5-11.0) K/uL RBC 3.66 (3.30-5.50) M/uL Hgb 11.8 L (12.0-15.0) g/dL Hct 37.8 (36.0-48.0) % MCV 103 H (80-98) fL MCH 32 H (27-31) pg MCHC 31 L (32-36) % Plt Count 112 L (150-400) K/uL Neut % (Auto) 78 H (36-66) % Lymph % (Auto) 11 L (24-44) % [place] % (Auto) 10 H (2-6) % Eos % (Auto) 0 L (2-4) % Baso % (Auto) 1 (0-1) % Puncture Site ABG pH (7.350-7.450) ABG pCO2 (35.0-42.0) mmHg ABG pO2 (75.0-100.0) mmHg ABG HCO3 (22.0-26.0) mmol/L ABG Total CO2 (21.0-25.0) mmol/L ABG O2 Saturation (95.0-98.0) % ABG O2 Content (15.0-23.0) %vol ABG Base Excess mm/L ABG Hemoglobin (12.0-16.0) g/dL ABG Oxyhemoglobin % ABG Carboxyhemoglobin (0.0-1.6) % ABG Methemoglobin % Alli Test VBG pH 7.319 L (7.350-7.450) O2 Delivery Device Oxygen Flow Rate L Sodium (140-148) mmol/L Potassium (3.6-5.2) mmol/L Chloride (100-108) mmol/L Carbon Dioxide (21-32) mmol/L Anion Gap (5.0-14.0) mmol/L BUN (7-18) mg/dL Creatinine (0.6-1.0) mg/dL Est Cr Clr Drug Dosing mL/min Estimated GFR (MDRD) (>60) Glucose (74-106) mg/dL Lactic Acid 3.0 H (0.4-2.0) mmol/L Calcium (8.5-10.1) mg/dL TSH, Ultra Sensitive (0.358-3.740) uIU/mL 05/22/17 05/22/17 Range/Units 06:01 06:01 WBC (4.5-11.0) K/uL RBC (3.30-5.50) M/uL Hgb (12.0-15.0) g/dL Hct (36.0-48.0) % MCV (80-98) fL MCH (27-31) pg MCHC (32-36) % Plt Count (150-400) K/uL Neut % (Auto) (36-66) % Lymph % (Auto) (24-44) % [place] % (Auto) (2-6) % Eos % (Auto) (2-4) % Baso % (Auto) (0-1) % Puncture Site ABG pH (7.350-7.450) ABG pCO2 (35.0-42.0) mmHg ABG pO2 (75.0-100.0) mmHg ABG HCO3 (22.0-26.0) mmol/L ABG Total CO2 (21.0-25.0) mmol/L ABG O2 Saturation (95.0-98.0) % ABG O2 Content (15.0-23.0) %vol ABG Base Excess mm/L ABG Hemoglobin (12.0-16.0) g/dL ABG Oxyhemoglobin % ABG Carboxyhemoglobin (0.0-1.6) % ABG Methemoglobin % Alli Test VBG pH (7.350-7.450) O2 Delivery Device Oxygen Flow Rate L Sodium 141 (140-148) mmol/L Potassium 5.2 (3.6-5.2) mmol/L Chloride 103 (100-108) mmol/L Carbon Dioxide 24 (21-32) mmol/L Anion Gap 13.8 (5.0-14.0) mmol/L BUN 67 H (7-18) mg/dL Creatinine 2.0 H (0.6-1.0) mg/dL Est Cr Clr Drug Dosing 15.08 mL/min Estimated GFR (MDRD) 23 L (>60) Glucose 49 L* (74-106) mg/dL Lactic Acid 5.8 H (0.4-2.0) mmol/L Calcium 7.9 L (8.5-10.1) mg/dL TSH, Ultra Sensitive 6.102 H (0.358-3.740) uIU/mL Med Orders - Current: Current Medications Aspirin (Halfprin) 81 mg PO DAILY [place] Last Admin: 05/22/17 08:51 Dose: 81 mg Diphenhydramine HCl (Benadryl) 25 - 50 mg IV Q4H PRN PRN Reason: ITCHING Last Admin: 05/21/17 22:52 Dose: 25 mg Diphenhydramine HCl (Benadryl) 0 mg PO Q4H PRN PRN Reason: ITCHING Enoxaparin Sodium (Lovenox) 30 mg SUBCUT Q24H [facility] Fentanyl (Sublimaze) 10 - 30 mcg IV Q1H PRN PRN Reason: PAIN Last Admin: 05/21/17 23:56 Dose: 30 mcg Dobutamine HCl/Dextrose (Dobutamine In D5w 250 Mg/250 Ml) 250 mg in 250 mls @ 6.756 mls/hr IV TITRATE [place]; 2 MCG/KG/MIN PRN Reason: Protocol Sodium Chloride (Normal Saline) 1,000 mls @ 25 mls/hr IV ASDIRECTED [facility] Levothyroxine Sodium (Levothyroxine) 75 mcg PO ACBREAKFAST [facility] Last Admin: 05/22/17 08:51 Dose: 75 mcg Metoprolol Tartrate (Lopressor) 12.5 mg PO Q6H [facility] Last Admin: 05/22/17 10:23 Dose: 12.5 mg Morphine Sulfate (Morphine) 1 - 3 mg IV Q1H PRN PRN Reason: PAIN Last Admin: 05/22/17 00:50 Dose: 2 mg Nicotine (Habitrol) 14 mg TRDERM Q24H PRN PRN Reason: SMOKING CESSATION Ondansetron HCl (Zofran) 4 mg IV Q8H PRN PRN Reason: N/V Pantoprazole Sodium (Protonix Iv) 40 mg IVPUSH Q24H [facility] Last Admin: 05/21/17 18:34 Dose: 40 mg Promethazine HCl (Phenergan) 12.5 - 25 mg IV Q8H PRN PRN Reason: N/V Scopolamine (Transderm-Scop) 1.5 mg TOP Q72H PRN PRN Reason: N/V Discontinued Medications Acetaminophen (Tylenol) 650 mg RECTAL NOW ONE Stop: 05/21/17 10:46 Last Admin: 05/21/17 11:06 Dose: 650 mg Bupivacaine HCl/Epinephrine Bitart (Marcaine 0.5%/Epinephrine 1:200,000) Confirm Administered Dose 50 ml .ROUTE .STK-MED ONE Stop: 05/21/17 11:50 Last Admin: 05/21/17 12:50 Dose: 30 ml Dexamethasone (Dexamethasone) Confirm Administered Dose 4 mg .ROUTE .STK-MED ONE Stop: 05/21/17 12:01 Dextrose/Water (Dextrose 50% In Water) 25 ml IVPUSH ONETIME ONE Stop: 05/22/17 06:46 Last Admin: 05/22/17 06:45 Dose: 25 ml Enoxaparin Sodium (Lovenox) 30 mg SUBCUT DAILY [facility] Last Admin: 05/21/17 18:34 Dose: 30 mg Fentanyl (Sublimaze) Confirm Administered Dose 250 mcg .ROUTE .STK-MED ONE Stop: 05/21/17 12:01 Glycopyrrolate () Confirm Administered Dose 1 mg .ROUTE .STK-MED ONE Stop: 05/21/17 12:01 Lactated Ringer's (Ringers, Lactated) 1,000 mls @ 999 mls/hr IV ASDIRECTED [facility] Last Admin: 05/21/17 09:08 Dose: 999 mls/hr Ampicillin Sodium/Sulbactam (Sodium 3 gm/ Sodium Chloride) 100 mls @ 200 mls/ hr IV ONETIME ONE Stop: 05/21/17 10:29 Last Admin: 05/21/17 10:05 Dose: 200 mls/hr Lactated Ringer's (Ringers, Lactated) 1,000 mls @ 300 mls/hr IV ASDIRECTED [facility] Last Admin: 05/21/17 10:40 Dose: 300 mls/hr Aztreonam/Dextrose 1 gm/ (Premix) 50 mls @ 100 mls/hr IV ONETIME ONE Stop: 05/21/17 10:59 Last Admin: 05/21/17 10:41 Dose: 100 mls/hr Sodium Chloride (Normal Saline) 1,000 mls @ 125 mls/hr IV ASDIRECTED [facility] Last Admin: 05/21/17 14:44 Dose: 125 mls/hr Ampicillin Sodium/Sulbactam (Sodium 1.5 gm/ Sodium Chloride) 50 mls @ 100 mls/ hr IV Q6H [facility] Last Admin: 05/22/17 04:17 Dose: 100 mls/hr Aztreonam/Dextrose 1 gm/ (Premix) 50 mls @ 100 mls/hr IV Q8H [facility] Last Admin: 05/22/17 02:23 Dose: 100 mls/hr Sodium Chloride (Normal Saline) 1,000 mls @ 75 mls/hr IV ASDIRECTED [facility] Last Admin: 05/22/17 02:27 Dose: 75 mls/hr Neostigmine Methylsulfate (Neostigmine) Confirm Administered Dose 5 mg .ROUTE .STK-MED ONE Stop: 05/21/17 12:01 Ondansetron HCl (Zofran) Confirm Administered Dose 4 mg .ROUTE .STK-MED ONE Stop: 05/21/17 12:01 Phenylephrine HCl (Valdemar-Synephrine) Confirm Administered Dose 10 mg .ROUTE .STK- MED ONE Stop: 05/21/17 12:01 Propofol (Diprivan 20 Ml) Confirm Administered Dose 200 mg .ROUTE .STK-MED ONE Stop: 05/21/17 12:06 Rocuronium [place] (Zemuron) Confirm Administered Dose 50 mg .ROUTE .STK-MED ONE Stop: 05/21/17 12:01 Succinylcholine Chloride (Succinylcholine In Ns Pf) Confirm Administered Dose 200 mg .ROUTE .STK-MED ONE Stop: 05/21/17 12:01 - Exam Quality Assessment: supplemental oxygen, urine catheter, DVT prophylaxis General: alert, cooperative, mild distress Lungs: Normal respiratory effort, Rales. No: Crackles, Rhonchi, Rub, Stridor Cardiovascular: Regular Rate, Regular Rhythm, Murmurs. No: Irregular Rhythm, Bradycardia, Tachycardia Abdomen: bowel sounds present, soft, tenderness. No: rigidity, rebound, guarding, distension Extremities: edema Skin: warm, dry, intact - Problem List & Annotations (1) CHF (congestive heart failure), NYHA class IV SNOMED Code(s): 860871660, 181180233 Code(s): I50.9 - HEART FAILURE, UNSPECIFIED Status: Acute Current Visit: Yes (2) CKD (chronic kidney disease) stage 4, GFR 15-29 ml/min SNOMED Code(s): 167123878 Code(s): N18.4 - CHRONIC KIDNEY DISEASE, STAGE 4 (SEVERE) Status: Acute Current Visit: Yes (3) MARYAN (acute kidney injury) SNOMED Code(s): 69624345 Code(s): N17.9 - ACUTE KIDNEY FAILURE, UNSPECIFIED Status: Acute Current Visit: Yes (4) Elevated liver enzymes SNOMED Code(s): 304521619, 338014992 Code(s): R74.8 - ABNORMAL LEVELS OF OTHER SERUM ENZYMES Status: Acute Current Visit: Yes - Problem List Review Problem List Initiated/Reviewed/Updated: Yes - My Orders Last 24 Hours: My Active Orders 05/21/17 16:30 Metoprolol Tartrate [Lopressor] 12.5 mg PO Q6H 05/21/17 17:15 Resuscitation Status Routine 05/21/17 18:00 Pantoprazole [ProTONIX IV] 40 mg IVPUSH Q24H 05/22/17 07:15 Blood Glucose Check, Bedside [RC] ONETIME 05/22/17 07:30 Levothyroxine 75 mcg PO ACBREAKFAST 05/22/17 09:00 Aspirin [Halfprin] 81 mg PO DAILY 05/22/17 10:00 DOBUTamine/Dextrose 5%-Water [DOBUTamine in D5W 250 MG/250 ML] 250 mg in 250 ml IV TITRATE Sodium Chloride 0.9% [Normal Saline] 1,000 ml IV ASDIRECTED 05/22/17 17:00 BASIC METABOLIC PANEL,BMP [CHEM] Stat LACTIC ACID [CHEM] Stat 05/22/17 18:00 Enoxaparin [Lovenox] 30 mg SUBCUT Q24H 05/22/17 Breakfast Full Liquid Diet [DIET] 05/23/17 05:00 CBC WITH AUTO DIFF [HEME] Timed COMPREHENSIVE METABOLIC PN,CMP [CHEM] Timed LACTIC ACID [CHEM] Timed MAGNESIUM [CHEM] Timed - Plan Plan:: ASSESSMENT AND PLAN LACTIC ACIDOSIS-likely secondary to dehydration as well as poor perfusion related to severely decreased left ventricular function. Diagnostic laparoscopy performed by Dr. Acosta showing no overt necrotic bowel or gallbladder. Lactic acid level did improve transiently with hydration, has recurred to a significant level following decrease in IV fluids. -Trial of IV dobutamine for management of CHF -Decrease IV fluids to TKO -Recheck lactic acid level later today and again in a.m. -Management of congestive failure as below CONGESTIVE HEART FAILURE-severely decreased left ventricular function estimated at 10-15%. Associated with severe mitral regurgitation and moderate to severe tricuspid regurgitation, elevation in right-sided pressures. -Hold diuretic therapy, reassess in a.m. -Metoprolol 12.5 mg by mouth every 6 hours, increase dose if she remains stable -Consider addition of ELVIRA inhibitor therapy if renal function improves -72 hour dobutamine infusion ELEVATED LIVER ENZYMES-likely secondary to liver injury associated with poor perfusion. No obvious gallbladder inflammation identified at surgery. No evidence of active infection, cultures are all negative thus far -Blood cultures pending -Discontinue IV antibiotics -Liver enzymes in a.m. CHRONIC KIDNEY DISEASE STAGE III WITH ACUTE KIDNEY INJURY-likely secondary to poor perfusion -Management of CHF as above -Closely monitor urine output and renal function HYPOTHYROIDISM-TSH mildly elevated likely secondary to having missed a few doses -Repeat TSH in one week -Continue outpatient dosing of levothyroxin PALLIATIVE CARE-she would like medical therapy but is not overly interested in aggressive interventions. She wishes to be DNR/DNI and does not want intubation or mechanical ventilation. MAINTENANCE ISSUES -DVT prophylaxis; Lovenox 30 mg subcutaneous daily -GI prophylaxis; Protonix 40 mg IV daily -Elena catheter; place to closely monitor urine output -Nutrition; full liquid diet, advance as tolerated -Nicotine dependence; not required CODE STATUS-DNR/DNI ADMISSION STATUS-patient will be admitted to inpatient status, expect at least a 2 night hospital stay for evaluation and management of problems as outlined above. At the time of this admission I do not reasonably expected evaluation and management of this problem will require more than a 96 hour hospital stay. DISPOSITION-anticipate discharge to home after the hospital stay. PRIMARY CARE PROVIDER-Dr. Vázquez
[2017-05-22] MEDS: DOBUTamine/Dextrose 5%-Water 250 MG/250 ML BAG IV SCH ×2 (10:57→21:42)
--- NOTE | 2017-05-22 13:41 | ECHO ---
REFERRING PRACTITIONER: Art Sharif MD 1. AO ROOT: 3.23. (NL = 2.0-3.7) 2. AORTIC VALVE EXCURSION: 3. LA: CM (NL = 1.9-4.0) 4. RV: 3.21. (NL = .09-2.6) 5. LV MULLINS: (NL = 3.5-5.7) 6. LV SYST: (NL = 2.2-4.3) 7. FRACTIONAL SHORTENING: (2542) 8. EJECTION FRACTION: 10% to 15%. (5075) 9. IVS: (NL = 0.6-1.1) 10. LVPW: (NL = 0.6 1.1) INDICATION: Poor perfusion, evaluate left ventricular function and valvular status. LEFT ATRIUM: 4.91. LEFT VENTRICLE DIASTOLIC: 5.8. LEFT VENTRICLE SYSTOLIC: 5.53. INTERVENTRICULAR SEPTAL WALL THICKNESS: 1.41. LEFT VENTRICULAR POSTERIOR WALL THICKNESS: 1.41. By 2D echo, left ventricular function appears to be severely diminished consistent with estimated ejection fraction of 10% to 15%. Left ventricle is globally hypokinetic. The best functioning wall appears to be the lateral wall at the base. There is paradoxical motion of the interventricular septal wall likely secondary to pacemaker function. There is concentric left ventricular hypertrophy. Pacemaker wires are noted in the right heart. There is no pericardial effusion. There is biatrial enlargement as well as left ventricular enlargement. Right ventricle appears to be normal size with preserved right ventricular function. There is calcification of the aortic valve. Leaflets and annulus without impairment of leaflet motion. There is calcification of the mitral valve annulus. Tricuspid and pulmonic valves appear to be structurally normal. By Doppler and color Doppler, there is elevation in estimated right ventricular pressure at 46 mmHg. No evidence of aortic stenosis. There is severe mitral regurgitation, [id number] tricuspid regurgitation, [id number] pulmonary insufficiency, and trace aortic insufficiency. IMPRESSION: 1. Severely decreased left ventricular function. Estimated ejection fraction of 10% to 15%. 2. Concentric left ventricular hypertrophy. 3. Wall motion abnormalities as described above. 4. Pacemaker wires noted in the right heart. 5. Biatrial enlargement. 6. Left ventricular enlargement. 7. Preserved right ventricular function. 8. Elevation and estimated right ventricular pressure of 46 mmHg. 9. Severe mitral regurgitation. 10. [id number] tricuspid regurgitation. 11. [id number] pulmonary insufficiency. 12. Trace aortic insufficiency. /[id number] MTDD
[2017-05-22] MEDS: DOPamine/Dextrose 5%-Water 400 MG/250 ML BAG IV SCH (16:19)
[2017-05-22] MEDS ORDERED: Enoxaparin 30 MG/0.3 ML Syringe SUBCUT SCH (18:00)
[2017-05-22] MEDS: Pantoprazole 40 MG Vial IVPUSH SCH (18:08)
[2017-05-22] MEDS ORDERED: Sodium Chloride 0.9% 500 ML IV ONE (18:15)
[2017-05-23] MEDS: DOBUTamine/Dextrose 5%-Water 250 MG/250 ML BAG IV SCH (06:59)
[2017-05-23] MEDS: Levothyroxine 75 MCG Tab PO SCH (07:57)
--- NOTE | 2017-05-23 09:23 | PCM.PN ---
- General Info Date of Service: 05/23/17 Functional Status: Reports: pain controlled, tolerating diet - Review of Systems General: Reports: Weakness. Denies: Fever, Chills Pulmonary: Reports: shortness of breath. Denies: pleuritic chest pain, cough, sputum, hemoptysis, wheezing Cardiovascular: Reports: Dyspnea on Exertion, Edema. Denies: Chest Pain, Palpitations, Orthopnea, PND Gastrointestinal: Reports: No symptoms Systems Review Comment:: Ms. Abdi has now completed 24 hours of dobutamine infusion, blood pressures have remained low to borderline and hypotension did require initiation of IV fluids again. Urine output remains marginal, renal function stable on laboratory studies. She does feel somewhat stronger today and has a little bit of an appetite. Laboratory studies have improved, liver enzymes are better and lactic acid level has normalized. - Patient Data Vitals - most recent: Last Vital Signs Temp 96.8 F 05/23/17 08:00 Pulse 84 05/23/17 08:00 Resp 14 05/23/17 08:00 BP 90/32 L 05/23/17 08:00 Pulse Ox 94 L 05/23/17 08:00 Weight - most recent: 129 lb 3.054 oz I&O - last 24 hours: Intake & Output 05/22/17 05/23/17 05/23/17 22:59 06:59 14:59 Intake Total 725 1562 Output Total 82 140 Balance 643 1422 Lab Results last 24 hrs: Laboratory Results - last 24 hr 05/22/17 05/22/17 05/23/17 Range/Units 16:52 16:52 05:50 WBC 4.7 (4.5-11.0) K/uL RBC 3.56 (3.30-5.50) M/uL Hgb 11.1 L (12.0-15.0) g/dL Hct 36.6 (36.0-48.0) % MCV 103 H (80-98) fL MCH 31 (27-31) pg MCHC 30 L (32-36) % Plt Count 91 L (150-400) K/uL Neut % (Auto) 75 H (36-66) % Lymph % (Auto) 13 L (24-44) % [place] % (Auto) 10 H (2-6) % Eos % (Auto) 0 L (2-4) % Baso % (Auto) 2 H (0-1) % Sodium 139 L (140-148) mmol/L Potassium 4.4 (3.6-5.2) mmol/L Chloride 104 (100-108) mmol/L Carbon Dioxide 29 (21-32) mmol/L Anion Gap 10.4 (5.0-14.0) mmol/L BUN 74 H (7-18) mg/dL Creatinine 2.0 H (0.6-1.0) mg/dL Est Cr Clr Drug Dosing 14.95 mL/min Estimated GFR (MDRD) 23 L (>60) Glucose 155 H (74-106) mg/dL Lactic Acid 2.2 H (0.4-2.0) mmol/L Calcium 7.2 L (8.5-10.1) mg/dL Magnesium (1.8-2.4) mg/dL Total Bilirubin (0.2-1.0) mg/dL AST (15-37) U/L ALT (12-78) U/L Alkaline Phosphatase (46-116) U/L Total Protein (6.4-8.2) g/dL Albumin (3.4-5.0) g/dL Globulin (2.3-3.5) g/dL Albumin/Globulin Ratio (1.2-2.2) 05/23/17 05/23/17 Range/Units 05:50 05:50 WBC (4.5-11.0) K/uL RBC (3.30-5.50) M/uL Hgb (12.0-15.0) g/dL Hct (36.0-48.0) % MCV (80-98) fL MCH (27-31) pg MCHC (32-36) % Plt Count (150-400) K/uL Neut % (Auto) (36-66) % Lymph % (Auto) (24-44) % [place] % (Auto) (2-6) % Eos % (Auto) (2-4) % Baso % (Auto) (0-1) % Sodium 138 L (140-148) mmol/L Potassium 4.3 (3.6-5.2) mmol/L Chloride 105 (100-108) mmol/L Carbon Dioxide 30 (21-32) mmol/L Anion Gap 7.3 (5.0-14.0) mmol/L BUN 75 H (7-18) mg/dL Creatinine 1.9 H (0.6-1.0) mg/dL Est Cr Clr Drug Dosing 15.74 mL/min Estimated GFR (MDRD) 25 L (>60) Glucose 130 H (74-106) mg/dL Lactic Acid 1.5 (0.4-2.0) mmol/L Calcium 7.2 L (8.5-10.1) mg/dL Magnesium 2.2 (1.8-2.4) mg/dL Total Bilirubin 3.3 H (0.2-1.0) mg/dL AST 488 H (15-37) U/L ALT 526 H (12-78) U/L Alkaline Phosphatase 141 H (46-116) U/L Total Protein 5.1 L (6.4-8.2) g/dL Albumin 1.9 L (3.4-5.0) g/dL Globulin 3.2 (2.3-3.5) g/dL Albumin/Globulin Ratio 0.6 L (1.2-2.2) Med Orders - Current: Current Medications Aspirin (Halfprin) 81 mg PO DAILY [place] Last Admin: 05/22/17 08:51 Dose: 81 mg Diphenhydramine HCl (Benadryl) 25 - 50 mg IV Q4H PRN PRN Reason: ITCHING Last Admin: 05/21/17 22:52 Dose: 25 mg Diphenhydramine HCl (Benadryl) 0 mg PO Q4H PRN PRN Reason: ITCHING Fentanyl (Sublimaze) 10 - 30 mcg IV Q1H PRN PRN Reason: PAIN Last Admin: 05/21/17 23:56 Dose: 30 mcg Dobutamine HCl/Dextrose (Dobutamine In D5w 250 Mg/250 Ml) 250 mg in 250 mls @ 6.756 mls/hr IV TITRATE [place]; 2 MCG/KG/MIN PRN Reason: Protocol Last Admin: 05/23/17 06:59 Dose: 8 mcg/kg/min, 27.024 mls/hr Dopamine HCl/Dextrose (Dopamine In D5w 400 Mg/250 Ml) 400 mg in 250 mls @ 4.223 mls/hr IV TITRATE [place]; 2 MCG/KG/MIN PRN Reason: Protocol Last Titration: 05/22/17 18:07 Dose: 4 mcg/kg/min, 8.445 mls/hr Sodium Chloride (Normal Saline) 1,000 mls @ 50 mls/hr IV ASDIRECTED [facility] Last Admin: 05/23/17 02:27 Dose: 50 mls/hr Levothyroxine Sodium (Levothyroxine) 75 mcg PO ACBREAKFAST [facility] Last Admin: 05/23/17 07:57 Dose: 75 mcg Metoprolol Tartrate (Lopressor) 12.5 mg PO Q6H [facility] Last Admin: 05/22/17 16:24 Dose: 12.5 mg Morphine Sulfate (Morphine) 1 - 3 mg IV Q1H PRN PRN Reason: PAIN Last Admin: 05/22/17 22:44 Dose: 2 mg Nicotine (Habitrol) 14 mg TRDERM Q24H PRN PRN Reason: SMOKING CESSATION Ondansetron HCl (Zofran) 4 mg IV Q8H PRN PRN Reason: N/V Last Admin: 05/22/17 23:28 Dose: 4 mg Pantoprazole Sodium (Protonix Iv) 40 mg IVPUSH Q24H [facility] Last Admin: 05/22/17 18:08 Dose: 40 mg Promethazine HCl (Phenergan) 12.5 - 25 mg IV Q8H PRN PRN Reason: N/V Scopolamine (Transderm-Scop) 1.5 mg TOP Q72H PRN PRN Reason: N/V Discontinued Medications Acetaminophen (Tylenol) 650 mg RECTAL NOW ONE Stop: 05/21/17 10:46 Last Admin: 05/21/17 11:06 Dose: 650 mg Bupivacaine HCl/Epinephrine Bitart (Marcaine 0.5%/Epinephrine 1:200,000) Confirm Administered Dose 50 ml .ROUTE .STK-MED ONE Stop: 05/21/17 11:50 Last Admin: 05/21/17 12:50 Dose: 30 ml Dexamethasone (Dexamethasone) Confirm Administered Dose 4 mg .ROUTE .STK-MED ONE Stop: 05/21/17 12:01 Dextrose/Water (Dextrose 50% In Water) 25 ml IVPUSH ONETIME ONE Stop: 05/22/17 06:46 Last Admin: 05/22/17 06:45 Dose: 25 ml Enoxaparin Sodium (Lovenox) 30 mg SUBCUT DAILY [facility] Last Admin: 05/21/17 18:34 Dose: 30 mg Enoxaparin Sodium (Lovenox) 30 mg SUBCUT Q24H [facility] Last Admin: 05/22/17 18:09 Dose: 30 mg Fentanyl (Sublimaze) Confirm Administered Dose 250 mcg .ROUTE .STK-MED ONE Stop: 05/21/17 12:01 Glycopyrrolate () Confirm Administered Dose 1 mg .ROUTE .STK-MED ONE Stop: 05/21/17 12:01 Lactated Ringer's (Ringers, Lactated) 1,000 mls @ 999 mls/hr IV ASDIRECTED [facility] Last Admin: 05/21/17 09:08 Dose: 999 mls/hr Ampicillin Sodium/Sulbactam (Sodium 3 gm/ Sodium Chloride) 100 mls @ 200 mls/ hr IV ONETIME ONE Stop: 05/21/17 10:29 Last Admin: 05/21/17 10:05 Dose: 200 mls/hr Lactated Ringer's (Ringers, Lactated) 1,000 mls [facility] Admin: 05/21/17 10:40 Dose: 300 mls/hr Aztreonam/Dextrose 1 gm/ (Premix) 50 mls @ 100 mls/hr IV ONETIME ONE Stop: 05/21/17 10:59 Last Admin: 05/21/17 10:40 Dose: 100 mls/hr Sodium Chloride (Normal Saline) 1,000 mls @ 125 mls/hr IV ASDIRECTED [facility] Last Admin: 05/21/17 14:44 Dose: 125 mls/hr Ampicillin Sodium/Sulbactam (Sodium 1.5 gm/ Sodium Chloride) 50 mls @ 100 mls/ hr IV Q6H [facility] Last Admin: 05/22/17 04:17 Dose: 100 mls/hr Aztreonam/Dextrose 1 gm/ (Premix) 50 mls @ 100 mls/hr IV Q8H [facility] Last Admin: 05/22/17 02:23 Dose: 100 mls/hr Sodium Chloride (Normal Saline) 1,000 mls @ 75 mls/hr IV ASDIRECTED [facility] Last Admin: 05/22/17 02:27 Dose: 75 mls/hr Sodium Chloride (Normal Saline) 1,000 mls @ 25 [facility]ls[facility] Last Admin: 05/22/17 16:27 Dose: 25 mls/hr Sodium Chloride (Normal Saline) 500 mls @ 250 mls/hr IV ASDIRECTED ONE Stop: 05/22/17 20:14 Last Admin: 05/22/17 18:08 Dose: 250 mls/hr Sodium Chloride (Normal Saline) 1,000 mls @ 125 mls/hr IV ASDIRECTED [facility] Neostigmine Methylsulfate (Neostigmine) Confirm Administered Dose 5 mg .ROUTE .STK-MED ONE Stop: 05/21/17 12:01 Ondansetron HCl (Zofran) Confirm Administered Dose 4 mg .ROUTE .STK-MED ONE Stop: 05/21/17 12:01 Phenylephrine HCl (Valdemar-Synephrine) Confirm Administered Dose 10 mg .ROUTE .STK- MED ONE Stop: 05/21/17 12:01 Propofol (Diprivan 20 Ml) Confirm Administered Dose 200 mg .ROUTE .STK-MED ONE Stop: 05/21/17 12:06 Rocuronium [place] (Zemuron) Confirm Administered Dose 50 mg .ROUTE .STK-MED ONE Stop: 05/21/17 12:01 Succinylcholine Chloride (Succinylcholine In Ns Pf) Confirm Administered Dose 200 mg .ROUTE .STK-MED ONE Stop: 05/21/17 12:01 - Exam Quality Assessment: supplemental oxygen, urine catheter, DVT prophylaxis General: alert, oriented, cooperative, mild distress Lungs: Clear to auscultation, Normal respiratory effort Cardiovascular: Regular Rate, Regular Rhythm, No Murmurs Abdomen: bowel sounds present, soft, no tenderness, no distension Extremities: edema Skin: warm, dry, intact - Problem List & Annotations (1) CHF (congestive heart failure), NYHA class IV SNOMED Code(s): 273830272, 776570379 Code(s): I50.9 - HEART FAILURE, UNSPECIFIED Status: Acute Current Visit: Yes (2) CKD (chronic kidney disease) stage 4, GFR 15-29 ml/min SNOMED Code(s): 470191986 Code(s): N18.4 - CHRONIC KIDNEY DISEASE, STAGE 4 (SEVERE) Status: Acute Current Visit: Yes (3) MARYAN (acute kidney injury) SNOMED Code(s): 40951635 Code(s): N17.9 - ACUTE KIDNEY FAILURE, UNSPECIFIED Status: Acute Current Visit: Yes (4) Elevated liver enzymes SNOMED Code(s): 410475250, 094724958 Code(s): R74.8 - ABNORMAL LEVELS OF OTHER SERUM ENZYMES Status: Acute Current Visit: Yes - Problem List Review Problem List Initiated/Reviewed/Updated: Yes - My Orders Last 24 Hours: My Active Orders 05/22/17 09:00 Aspirin [Halfprin] 81 mg PO DAILY 05/22/17 10:00 DOBUTamine/Dextrose 5%-Water [DOBUTamine in D5W 250 MG/250 ML] 250 mg in 250 ml IV TITRATE 05/22/17 16:00 DOPamine/Dextrose 5%-Water [DOPamine in D5W 400 MG/250 ML] 400 mg in 250 ml IV TITRATE 05/22/17 21:30 Sodium Chloride 0.9% [Normal Saline] 1,000 ml IV ASDIRECTED 05/23/17 08:21 Sequential Compression Device [OM.PC] Routine 05/24/17 05:00 COMPREHENSIVE METABOLIC PN,CMP [CHEM] Timed - Plan Plan:: ASSESSMENT AND PLAN LACTIC ACIDOSIS-likely secondary to dehydration as well as poor perfusion related to severely decreased left ventricular function. Diagnostic laparoscopy performed by Dr. Acosta showing no overt necrotic bowel or gallbladder. Lactic acid level has normalized with use of IV dobutamine -Trial of IV dobutamine for management of CHF -Normal saline 50 mL per hour -Management of congestive failure as below CONGESTIVE HEART FAILURE-severely decreased left ventricular function estimated at 10-15%. Associated with severe mitral regurgitation and moderate to severe tricuspid regurgitation, elevation in right-sided pressures. -Hold diuretic therapy, reassess in a.m. -Hold metoprolol and use of ELVIRA inhibitor because of hypotension -Dopamine at 4 mcg/kg/m to try and improve renal perfusion -72 hour dobutamine infusion ELEVATED LIVER ENZYMES-likely secondary to liver injury associated with poor perfusion. No obvious gallbladder inflammation identified at surgery. Liver enzymes have improved with current management -Blood cultures pending -Discontinue IV antibiotics -Liver enzymes in a.m. CHRONIC KIDNEY DISEASE STAGE III WITH ACUTE KIDNEY INJURY-likely secondary to poor perfusion, urine output has been very poor, renal function stable on laboratory studies -Management of CHF as above -Closely monitor urine output and renal function HYPOTHYROIDISM-TSH mildly elevated likely secondary to having missed a few doses -Repeat TSH in one week -Continue outpatient dosing of levothyroxin PALLIATIVE CARE-she would like medical therapy but is not overly interested in aggressive interventions. She wishes to be DNR/DNI and does not want intubation or mechanical ventilation. MAINTENANCE ISSUES -DVT prophylaxis; Lovenox 30 mg subcutaneous daily -GI prophylaxis; Protonix 40 mg IV daily -Elena catheter; place to closely monitor urine output -Nutrition; full liquid diet, advance as tolerated -Nicotine dependence; not required CODE STATUS-DNR/DNI ADMISSION STATUS-patient will be admitted to inpatient status, expect at least a 2 night hospital stay for evaluation and management of problems as outlined above. At the time of this admission I do not reasonably expected evaluation and management of this problem will require more than a 96 hour hospital stay. DISPOSITION-anticipate discharge to home after the hospital stay. PRIMARY CARE PROVIDER-Dr. Vázquez
[2017-05-23] MEDS: Aspirin 81 MG Tab.EC PO SCH (10:13)
[2017-05-23] MEDS: Metoprolol Tartrate 25 MG Tab PO SCH (10:14)
[2017-05-23] MEDS ORDERED: Sodium Chloride 0.9% 250 ML IV ONE ×2 (13:26→17:30)
[2017-05-23] MEDS ORDERED: Sodium Chloride 0.9% 1,000 ML IV SCH ×3 (15:25→17:45)
[2017-05-23] MEDS ORDERED: DOBUTAMINE IV SCH (16:00)
[2017-05-23] MEDS ORDERED: SODIUM CHLORIDE 0.9% IV SCH (16:00)
[2017-05-23] MEDS: Pantoprazole 40 MG Vial IVPUSH SCH (17:08)
[2017-05-23] MEDS: DOPamine/Dextrose 5%-Water 400 MG/250 ML BAG IV SCH (21:29)
[2017-05-23] MEDS ORDERED: Phentolamine 5 MG Vial IVPUSH ONE (22:52)
[2017-05-23] MEDS ORDERED: Nitroglycerin 2% Oint 1 GM UD Packet TOP ONE (23:33)
[2017-05-24] MEDS ORDERED: Sodium Chloride 0.9% 1,000 ML IV SCH (09:00)
--- NOTE | 2017-05-24 09:10 | PCM.PN ---
- General Info Date of Service: 05/24/17 Functional Status: Reports: tolerating diet - Review of Systems General: Reports: Weakness. Denies: Fever, Chills Pulmonary: Reports: no symptoms Cardiovascular: Reports: Dyspnea on Exertion, Edema. Denies: Chest Pain, Palpitations, Orthopnea, PND Gastrointestinal: Reports: No symptoms Systems Review Comment:: This patient does not feel significantly improved, laboratory studies have improved with better perfusion creatinine is down to 1.2 with a GFR in the low 40s. Liver enzymes have improved significantly and lactic acidosis resolved. Oral intake has been somewhat marginal. We have intermittently required use of IV fluids for maintaining blood pressure and she has started to develop some edema. Denies current symptoms of chest pain or pressure and has not had significant shortness of breath although activity has been minimal. - Patient Data Vitals - most recent: Last Vital Signs Temp 97.6 F 05/24/17 07:28 Pulse 84 05/24/17 08:00 Resp 17 05/24/17 08:00 BP 85/34 L 05/24/17 08:00 Pulse Ox 97 05/24/17 08:00 Weight - most recent: 132 lb 4.438 oz I&O - last 24 hours: Intake & Output 05/23/17 05/24/17 05/24/17 22:59 06:59 14:59 Intake Total 1225 1100 Output Total 245 435 75 Balance 980 665 -75 Lab Results last 24 hrs: Laboratory Results - last 24 hr 05/24/17 Range/Units 05:15 Sodium 139 L (140-148) mmol/L Potassium 3.8 (3.6-5.2) mmol/L Chloride 106 (100-108) mmol/L Carbon Dioxide 29 (21-32) mmol/L Anion Gap 7.8 (5.0-14.0) mmol/L BUN 57 H (7-18) mg/dL Creatinine 1.2 H (0.6-1.0) mg/dL Est Cr Clr Drug Dosing 24.92 mL/min Estimated GFR (MDRD) 42 L (>60) Glucose 88 (74-106) mg/dL Calcium 7.2 L (8.5-10.1) mg/dL Total Bilirubin 2.3 H (0.2-1.0) mg/dL AST 243 H (15-37) U/L ALT 382 H (12-78) U/L Alkaline Phosphatase 120 H (46-116) U/L Total Protein 5.0 L (6.4-8.2) g/dL Albumin 1.7 L (3.4-5.0) g/dL Globulin 3.3 (2.3-3.5) g/dL Albumin/Globulin Ratio 0.5 L (1.2-2.2) Med Orders - Current: Current Medications Aspirin (Halfprin) 81 mg PO DAILY [place] Last Admin: 05/23/17 10:13 Dose: 81 mg Carvedilol (Coreg) 3.125 mg PO BID [place] Diphenhydramine HCl (Benadryl) 25 - 50 mg IV Q4H PRN PRN Reason: ITCHING Last Admin: 05/21/17 22:52 Dose: 25 mg Diphenhydramine HCl (Benadryl) 0 mg PO Q4H PRN PRN Reason: ITCHING Fentanyl (Sublimaze) 10 - 30 mcg IV Q1H PRN PRN Reason: PAIN Last Admin: 05/21/17 23:56 Dose: 30 mcg Furosemide (Lasix) 40 mg IVPUSH NOW ONE Stop: 05/25/17 08:01 Dopamine HCl/Dextrose (Dopamine In D5w 400 Mg/250 Ml) 400 mg in 250 mls @ 4.223 mls/hr IV TITRATE [place]; 2 MCG/KG/MIN PRN Reason: Protocol Last Admin: 05/23/17 21:29 Dose: 4 mcg/kg/min, 8.79 mls/hr Dobutamine HCl 250 mg/ Sodium (Chloride) 250 mls @ 7.03 mls/hr IV TITRATE [place]; 2 MCG/KG/MIN PRN Reason: Protocol Last Admin: 05/24/17 02:09 Dose: 2 mcg/kg/min, 7.03 mls/hr Sodium Chloride (Normal Saline) 1,000 mls @ 10 mls/hr IV ASDIRECTED [place] Levothyroxine Sodium (Levothyroxine) 75 mcg PO ACBREAKFAST [place] Last Admin: 05/23/17 07:57 Dose: 75 mcg Morphine Sulfate (Morphine) 1 - 3 mg IV Q1H PRN PRN Reason: PAIN Last Admin: 05/22/17 22:44 Dose: 2 mg Nicotine (Habitrol) 14 mg TRDERM Q24H PRN PRN Reason: SMOKING CESSATION Ondansetron HCl (Zofran) 4 mg IV Q8H PRN PRN Reason: N/V Last Admin: 05/22/17 23:28 Dose: 4 mg Pantoprazole Sodium (Protonix Iv) 40 mg IVPUSH Q24H [facility] Last Admin: 05/23/17 17:08 Dose: 40 mg Promethazine HCl (Phenergan) 12.5 - 25 mg IV Q8H PRN PRN Reason: N/V Scopolamine (Transderm-Scop) 1.5 mg TOP Q72H PRN PRN Reason: N/V Discontinued Medications Acetaminophen (Tylenol) 650 mg RECTAL NOW ONE Stop: 05/21/17 10:46 Last Admin: 05/21/17 11:06 Dose: 650 mg Bupivacaine HCl/Epinephrine Bitart (Marcaine 0.5%/Epinephrine 1:200,000) Confirm Administered Dose 50 ml .ROUTE .STK-MED ONE Stop: 05/21/17 11:50 Last Admin: 05/21/17 12:50 Dose: 30 ml Dexamethasone (Dexamethasone) Confirm Administered Dose 4 mg .ROUTE .STK-MED ONE Stop: 05/21/17 12:01 Dextrose/Water (Dextrose 50% In Water) 25 ml IVPUSH ONETIME ONE Stop: 05/22/17 06:46 Last Admin: 05/22/17 06:45 Dose: 25 ml Enoxaparin Sodium (Lovenox) 30 mg SUBCUT DAILY [facility] Last Admin: 05/21/17 18:34 Dose: 30 mg Enoxaparin Sodium (Lovenox) 30 mg SUBCUT Q24H [facility] Last Admin: 05/22/17 18:09 Dose: 30 mg Fentanyl (Sublimaze) Confirm Administered Dose 250 mcg .ROUTE .STK-MED ONE Stop: 05/21/17 12:01 Glycopyrrolate () Confirm Administered Dose 1 mg .ROUTE .STK-MED ONE Stop: 05/21/17 12:01 Lactated Ringer's (Ringers, Lactated) 1,000 mls @ 999 mls/hr IV ASDIRECTED [facility] Last Admin: 05/21/17 09:08 Dose: 999 mls/hr Ampicillin Sodium/Sulbactam (Sodium 3 gm/ Sodium Chloride) 100 mls @ 200 mls/ hr IV ONETIME ONE Stop: 05/21/17 10:29 Last Admin: 05/21/17 10:05 Dose: 200 mls/hr Lactated Ringer's (Ringers, Lactated) 1,000 mls @ 300 mls/hr IV ASDIRECTED [place] Last Admin: 05/21/17 10:40 Dose: 300 mls/hr Aztreonam/Dextrose 1 gm/ (Premix) 50 mls @ 100 mls/hr IV ONETIME ONE Stop: 05/21/17 10:59 Last Admin: 05/21/17 10:40 Dose: 100 mls/hr Sodium Chloride (Normal Saline) 1,000 mls @ 125 mls/hr IV ASDIRECTED [place] Last Admin: 05/21/17 14:44 Dose: 125 mls/hr Ampicillin Sodium/Sulbactam (Sodium 1.5 gm/ Sodium Chloride) 50 mls @ 100 mls/ hr IV Q6H [place] Last Admin: 05/22/17 04:17 Dose: 100 mls/hr Aztreonam/Dextrose 1 gm/ (Premix) 50 mls @ 100 mls/hr IV Q8H [place] Last Admin: 05/22/17 02:23 Dose: 100 mls/hr Sodium Chloride (Normal Saline) 1,000 mls @ 75 mls/hr IV ASDIRECTED [place] Last Admin: 05/22/17 02:27 Dose: 75 mls/hr Dobutamine HCl/Dextrose (Dobutamine In D5w 250 Mg/250 Ml) 250 mg in 250 mls @ 6.756 mls/hr IV TITRATE [place]; 2 MCG/KG/MIN PRN Reason: Protocol Stop: 05/23/17 15:00 Last Admin: 05/23/17 06:59 Dose: 8 mcg/kg/min, 27.024 mls/hr Sodium Chloride (Normal Saline) 1,000 mls @ 25 mls/hr IV ASDIRECTED [place] Last Admin: 05/22/17 16:27 Dose: 25 mls/hr Sodium Chloride (Normal Saline) 500 mls @ 250 mls/hr IV ASDIRECTED ONE Stop: 05/22/17 20:14 Last Admin: 05/22/17 18:08 Dose: 250 mls/hr Sodium Chloride (Normal Saline) 1,000 mls @ 125 mls/hr IV ASDIRECTED [place] Sodium Chloride (Normal Saline) 1,000 mls @ 50 mls/hr IV ASDIRECTED [facility] Last Admin: 05/23/17 02:27 Dose: 50 mls/hr Sodium Chloride (Normal Saline) 250 mls @ 999 mls/hr IV .BOLUS ONE Stop: 05/23/17 13:41 Last Admin: 05/23/17 17:33 Dose: Not Given Sodium Chloride (Normal Saline) 1,000 mls @ 50 mls/hr IV ASDIRECTED [facility] Sodium Chloride (Normal Saline) 250 mls @ 125 mls/hr IV ONETIME ONE Stop: 05/23/17 19:29 Last Admin: 05/23/17 13:40 Dose: 125 mls/hr Sodium Chloride (Normal Saline) 1,000 mls @ 50 mls/hr IV ASDIRECTED [facility] Last Admin: 05/23/17 17:00 Dose: 50 mls/hr Metoprolol Tartrate (Lopressor) 12.5 mg PO Q6H [facility] Last Admin: 05/23/17 10:14 Dose: Not Given Neostigmine Methylsulfate (Neostigmine) Confirm Administered Dose 5 mg .ROUTE .STK-MED ONE Stop: 05/21/17 12:01 Nitroglycerin (Nitro-Bid 2%) 1 gm TOP ONETIME ONE Stop: 05/23/17 23:34 Last Admin: 05/23/17 23:50 Dose: 1 gm Ondansetron HCl (Zofran) Confirm Administered Dose 4 mg .ROUTE .STK-MED ONE Stop: 05/21/17 12:01 Phentolamine Mesylate (Regitine) 5 mg IVPUSH ONETIME ONE Stop: 05/23/17 22:53 Phenylephrine HCl (Valdemar-Synephrine) Confirm Administered Dose 10 mg .ROUTE .STK- MED ONE Stop: 05/21/17 12:01 Propofol (Diprivan 20 Ml) Confirm Administered Dose 200 mg .ROUTE .STK-MED ONE Stop: 05/21/17 12:06 Rocuronium [place] (Zemuron) Confirm Administered Dose 50 mg .ROUTE .STK-MED ONE Stop: 05/21/17 12:01 Succinylcholine Chloride (Succinylcholine In Ns Pf) Confirm Administered Dose 200 mg .ROUTE .STK-MED ONE Stop: 05/21/17 12:01 - Exam Quality Assessment: DVT prophylaxis General: alert, oriented, cooperative, mild distress Lungs: Clear to auscultation, Normal respiratory effort Cardiovascular: Regular Rate, Regular Rhythm, Murmurs Abdomen: bowel sounds present, soft, no tenderness, no distension Extremities: edema Skin: warm, dry, intact - Problem List & Annotations (1) CHF (congestive heart failure), NYHA class IV SNOMED Code(s): 001259364, 908244278 Code(s): I50.9 - HEART FAILURE, UNSPECIFIED Status: Acute Current Visit: Yes (2) CKD (chronic kidney disease) stage 4, GFR 15-29 ml/min SNOMED Code(s): 547015222 Code(s): N18.4 - CHRONIC KIDNEY DISEASE, STAGE 4 (SEVERE) Status: Acute Current Visit: Yes (3) MARYAN (acute kidney injury) SNOMED Code(s): 85269571 Code(s): N17.9 - ACUTE KIDNEY FAILURE, UNSPECIFIED Status: Acute Current Visit: Yes (4) Elevated liver enzymes SNOMED Code(s): 753680372, 654373731 Code(s): R74.8 - ABNORMAL LEVELS OF OTHER SERUM ENZYMES Status: Acute Current Visit: Yes - Problem List Review Problem List Initiated/Reviewed/Updated: Yes - My Orders Last 24 Hours: My Active Orders 05/23/17 08:21 Sequential Compression Device [OM.PC] Routine 05/23/17 16:00 DOBUTamine 250 mg Sodium Chloride 0.9% [Normal Saline] 230 ml IV TITRATE 05/24/17 09:00 Carvedilol [Coreg] 3.125 mg PO BID Sodium Chloride 0.9% [Normal Saline] 1,000 ml IV ASDIRECTED 05/25/17 05:00 CBC WITH AUTO DIFF [HEME] Timed COMPREHENSIVE METABOLIC PN,CMP [CHEM] Timed MAGNESIUM [CHEM] Timed 05/25/17 08:00 Furosemide [Lasix] 40 mg IVPUSH NOW ONE - Plan Plan:: ASSESSMENT AND PLAN LACTIC ACIDOSIS- resolved -Management of congestive failure as below CONGESTIVE HEART FAILURE-severely decreased left ventricular function estimated at 10-15%. Associated with severe mitral regurgitation and moderate to severe tricuspid regurgitation, elevation in right-sided pressures. -Lasix 40 mg IV in a.m. -IV to TKO, 10 mL/h -Carvedilol 3.125 mg by mouth twice a day -Consider trial of ELVIRA inhibitor tomorrow if she tolerates carvedilol -Dopamine at 4 mcg/kg/m to try and improve renal perfusion -72 hour dobutamine infusion ELEVATED LIVER ENZYMES-likely secondary to liver injury associated with poor perfusion. No obvious gallbladder inflammation identified at surgery. Liver enzymes have improved with current management -Blood cultures pending -Discontinue IV antibiotics -Liver enzymes in a.m. CHRONIC KIDNEY DISEASE STAGE III WITH ACUTE KIDNEY- renal function has improved significantly with dobutamine infusion -Management of CHF as above -Closely monitor urine output and renal function HYPOTHYROIDISM-TSH mildly elevated likely secondary to having missed a few doses -Repeat TSH in one week -Continue outpatient dosing of levothyroxin PALLIATIVE CARE-she would like medical therapy but is not overly interested in aggressive interventions. She wishes to be DNR/DNI and does not want intubation or mechanical ventilation. MAINTENANCE ISSUES -DVT prophylaxis; Lovenox 30 mg subcutaneous daily -GI prophylaxis; Protonix 40 mg IV daily -Elena catheter; place to closely monitor urine output -Nutrition; full liquid diet, advance as tolerated -Nicotine dependence; not required CODE STATUS-DNR/DNI ADMISSION STATUS-patient will be admitted to inpatient status, expect at least a 2 night hospital stay for evaluation and management of problems as outlined above. At the time of this admission I do not reasonably expected evaluation and management of this problem will require more than a 96 hour hospital stay. DISPOSITION-anticipate discharge to home after the hospital stay. PRIMARY CARE PROVIDER-Dr. Vázquez
[2017-05-24] MEDS: Aspirin 81 MG Tab.EC PO SCH (09:23)
[2017-05-24] MEDS: Levothyroxine 75 MCG Tab PO SCH (09:23)
[2017-05-24] MEDS: Carvedilol 3.125 MG Tab PO SCH ×2 (10:02→21:14)
[2017-05-24] MEDS ORDERED: Nitroglycerin 2% Oint 1 GM UD Packet TOP ONE (15:30)
[2017-05-24] MEDS: Pantoprazole 40 MG Vial IVPUSH SCH (17:10)
[2017-05-24] MEDS ORDERED: Nitroglycerin 2% Oint 1 GM UD Packet TOP PRN (20:00)
[2017-05-25] MEDS: DOPamine/Dextrose 5%-Water 400 MG/250 ML BAG IV SCH (04:11)
[2017-05-25] MEDS: Levothyroxine 75 MCG Tab PO SCH (07:37)
[2017-05-25] MEDS ORDERED: Furosemide 40 MG/4 ML VIAL IVPUSH ONE (08:00)
[2017-05-25] MEDS: Aspirin 81 MG Tab.EC PO SCH (08:05)
[2017-05-25] MEDS: Carvedilol 3.125 MG Tab PO SCH ×2 (08:05→21:29)
--- NOTE | 2017-05-25 09:17 | PCM.PN ---
- General Info Date of Service: 05/25/17 Functional Status: Reports: pain controlled, tolerating diet - Review of Systems General: Reports: Weakness. Denies: Fever Pulmonary: Reports: shortness of breath Systems Review Comment:: No acute events overnight. Has tolerated the dobutamine infusion well and has maintained a low normal urine output. She continues to require supplemental oxygen. She reports feeling weak and fatigued and is not sure if she even has the strength to stand up at this point. She has not had any fevers. She has mild swelling of her arms and mild ankle edema. She does not report orthopnea as long as she is at a 30 angle. - Patient Data Vitals - most recent: Last Vital Signs Temp 35.9 C 05/25/17 04:00 Pulse 78 05/25/17 08:05 Resp 15 05/25/17 08:00 BP 116/38 L 05/25/17 08:05 Pulse Ox 95 05/25/17 08:00 Weight - most recent: 61 kg I&O - last 24 hours: Intake & Output 05/24/17 05/25/17 05/25/17 22:59 06:59 14:59 Intake Total 770 674 240 Output Total 295 375 225 Balance 475 299 15 Lab Results last 24 hrs: Laboratory Results - last 24 hr 05/25/17 05/25/17 Range/Units 05:50 05:50 WBC 7.1 (4.5-11.0) K/uL RBC 3.45 (3.30-5.50) M/uL Hgb 10.6 L (12.0-15.0) g/dL Hct 35.0 L (36.0-48.0) % MCV 101 H (80-98) fL MCH 31 (27-31) pg MCHC 30 L (32-36) % Plt Count 77 L (150-400) K/uL Neut % (Auto) 44 (36-66) % Lymph % (Auto) 47 H (24-44) % [place] % (Auto) 6 (2-6) % Eos % (Auto) 1 L (2-4) % Baso % (Auto) 2 H (0-1) % Sodium 140 (140-148) mmol/L Potassium 3.7 (3.6-5.2) mmol/L Chloride 108 (100-108) mmol/L Carbon Dioxide 28 (21-32) mmol/L Anion Gap 4.5 L (5.0-14.0) mmol/L BUN 32 H (7-18) mg/dL Creatinine 0.8 (0.6-1.0) mg/dL Est Cr Clr Drug Dosing 37.38 mL/min Estimated GFR (MDRD) > 60 (>60) Glucose 79 (74-106) mg/dL Calcium 7.3 L (8.5-10.1) mg/dL Magnesium 2.1 (1.8-2.4) mg/dL Total Bilirubin 1.9 H (0.2-1.0) mg/dL AST 117 H (15-37) U/L ALT 255 H (12-78) U/L Alkaline Phosphatase 103 (46-116) U/L Total Protein 4.9 L (6.4-8.2) g/dL Albumin 1.5 L (3.4-5.0) g/dL Globulin 3.4 (2.3-3.5) g/dL Albumin/Globulin Ratio 0.4 L (1.2-2.2) Med Orders - Current: Current Medications Aspirin (Halfprin) 81 mg PO DAILY [place] Last Admin: 05/25/17 08:05 Dose: 81 mg Carvedilol (Coreg) 3.125 mg PO BID [place] Last Admin: 05/25/17 08:05 Dose: 3.125 mg Diphenhydramine HCl (Benadryl) 25 - 50 mg IV Q4H PRN PRN Reason: ITCHING Last Admin: 05/21/17 22:52 Dose: 25 mg Diphenhydramine HCl (Benadryl) 0 mg PO Q4H PRN PRN Reason: ITCHING Dobutamine HCl 250 mg/ Sodium (Chloride) 250 mls @ 7.03 mls/hr IV TITRATE [place]; 2 MCG/KG/MIN PRN Reason: Protocol Last Titration: 05/25/17 08:42 Dose: 4 mcg/kg/min, 14.06 mls/hr Sodium Chloride (Normal Saline) 1,000 mls @ 10 mls/hr IV ASDIRECTED [place] Last Admin: 05/24/17 23:15 Dose: 10 mls/hr Levothyroxine Sodium (Levothyroxine) 75 mcg PO ACBREAKFAST [place] Last Admin: 05/25/17 07:37 Dose: 75 mcg Morphine Sulfate (Morphine) 1 - 3 mg IV Q1H PRN PRN Reason: PAIN Last Admin: 05/22/17 22:44 Dose: 2 mg Ondansetron HCl (Zofran) 4 mg IV Q8H PRN PRN Reason: N/V Last Admin: 05/22/17 23:28 Dose: 4 mg Promethazine HCl (Phenergan) 12.5 - 25 mg IV Q8H PRN PRN Reason: N/V Scopolamine (Transderm-Scop) 1.5 mg TOP Q72H PRN PRN Reason: N/V Discontinued Medications Acetaminophen (Tylenol) 650 mg RECTAL NOW ONE Stop: 05/21/17 10:46 Last Admin: 05/21/17 11:06 Dose: 650 mg Bupivacaine HCl/Epinephrine Bitart (Marcaine 0.5%/Epinephrine 1:200,000) Confirm Administered Dose 50 ml .ROUTE .STK-MED ONE Stop: 05/21/17 11:50 Last Admin: 05/21/17 12:50 Dose: 30 ml Dexamethasone (Dexamethasone) Confirm Administered Dose 4 mg .ROUTE .STK-MED ONE Stop: 05/21/17 12:01 Dextrose/Water (Dextrose 50% In Water) 25 ml IVPUSH ONETIME ONE Stop: 05/22/17 06:46 Last Admin: 05/22/17 06:45 Dose: 25 ml Enoxaparin Sodium (Lovenox) 30 mg SUBCUT DAILY [facility] Last Admin: 05/21/17 18:34 Dose: 30 mg Enoxaparin Sodium (Lovenox) 30 mg SUBCUT Q24H [facility] Last Admin: 05/22/17 18:09 Dose: 30 mg Fentanyl (Sublimaze) Confirm Administered Dose 250 mcg .ROUTE .STK-MED ONE Stop: 05/21/17 12:01 Fentanyl (Sublimaze) 10 - 30 mcg IV Q1H PRN PRN Reason: PAIN Last Admin: 05/21/17 23:56 Dose: 30 mcg Furosemide (Lasix) 40 mg IVPUSH NOW ONE Stop: 05/25/17 08:01 Last Admin: 05/25/17 07:37 Dose: 40 mg Glycopyrrolate () Confirm Administered Dose 1 mg .ROUTE .STK-MED ONE Stop: 05/21/17 12:01 Lactated Ringer's (Ringers, Lactated) 1,000 mls @ 999 mls/hr IV ASDIRECTED [place] Last Admin: 05/21/17 09:08 Dose: 999 mls/hr Ampicillin Sodium/Sulbactam (Sodium 3 gm/ Sodium Chloride) 100 mls @ 200 mls/ hr IV ONETIME ONE Stop: 05/21/17 10:29 Last Admin: 05/21/17 10:05 Dose: 200 mls/hr Lactated Ringer's (Ringers, Lactated) 1,000 mls @ 300 mls/hr IV ASDIRECTED [place] Last Admin: 05/21/17 10:40 Dose: 300 mls/hr Aztreonam/Dextrose 1 gm/ (Premix) 50 mls @ 100 mls/hr IV ONETIME ONE Stop: 05/21/17 10:59 Last Admin: 05/21/17 10:40 Dose: 100 mls/hr Sodium Chloride (Normal Saline) 1,000 mls @ 125 mls/hr IV ASDIRECTED [place] Last Admin: 05/21/17 14:44 Dose: 125 mls/hr Ampicillin Sodium/Sulbactam (Sodium 1.5 gm/ Sodium Chloride) 50 mls @ 100 mls/ hr IV Q6H [place] Last Admin: 05/22/17 04:17 Dose: 100 mls/hr Aztreonam/Dextrose 1 gm/ (Premix) 50 mls @ 100 mls/hr IV Q8H [place] Last Admin: 05/22/17 02:23 Dose: 100 mls/hr Sodium Chloride (Normal Saline) 1,000 mls @ 75 mls/hr IV ASDIRECTED [place] Last Admin: 05/22/17 02:27 Dose: 75 mls/hr Dobutamine HCl/Dextrose (Dobutamine In D5w 250 Mg/250 Ml) 250 mg in 250 mls @ 6.756 mls/hr IV TITRATE [place]; 2 MCG/KG/MIN PRN Reason: Protocol Stop: 05/23/17 15:00 Last Admin: 05/23/17 06:59 Dose: 8 mcg/kg/min, 27.024 mls/hr Sodium Chloride (Normal Saline) 1,000 mls @ 25 mls/hr IV ASDIRECTED [place] Last Admin: 05/22/17 16:27 Dose: 25 mls/hr Dopamine HCl/Dextrose (Dopamine In D5w 400 Mg/250 Ml) 400 mg in 250 mls @ 4.223 mls/hr IV TITRATE [place]; 2 MCG/KG/MIN PRN Reason: Protocol Last Titration: 05/25/17 05:37 Dose: 0 mcg/kg/min, 0 mls/hr Sodium Chloride (Normal Saline) 500 mls @ 250 mls/hr IV ASDIRECTED ONE Stop: 05/22/17 20:14 Last Admin: 05/22/17 18:08 Dose: 250 mls/hr Sodium Chloride (Normal Saline) 1,000 mls @ 125 mls/hr IV ASDIRECTED [place] Sodium Chloride (Normal Saline) 1,000 mls @ 50 mls/hr IV ASDIRECTED [place] Last Admin: 05/23/17 02:27 Dose: 50 mls/hr Sodium Chloride (Normal Saline) 250 mls @ 999 mls/hr IV .BOLUS ONE Stop: 05/23/17 13:41 Last Admin: 05/23/17 17:33 Dose: Not Given Sodium Chloride (Normal Saline) 1,000 mls @ 50 mls/hr IV ASDIRECTED [place] Sodium Chloride (Normal Saline) 250 mls @ 125 mls/hr IV ONETIME ONE Stop: 05/23/17 19:29 Last Admin: 05/23/17 13:40 Dose: 125 mls/hr Sodium Chloride (Normal Saline) 1,000 mls @ 50 mls/hr IV ASDIRECTED [place] Last Admin: 05/23/17 17:00 Dose: 50 mls/hr Metoprolol Tartrate (Lopressor) 12.5 mg PO Q6H [facility] Last Admin: 05/23/17 10:14 Dose: Not Given Neostigmine Methylsulfate (Neostigmine) Confirm Administered Dose 5 mg .ROUTE .STK-MED ONE Stop: 05/21/17 12:01 Nicotine (Habitrol) 14 mg TRDERM Q24H PRN PRN Reason: SMOKING CESSATION Nitroglycerin (Nitro-Bid 2%) 1 gm TOP ONETIME ONE Stop: 05/23/17 23:34 Last Admin: 05/23/17 23:50 Dose: 1 gm Nitroglycerin (Nitro-Bid 2%) 1 gm TOP ONETIME ONE Stop: 05/24/17 15:31 Last Admin: 07/16/17 15:35 Dose: 1 gm Nitroglycerin (Nitro-Bid 2%) 1 gm TOP Q8H PRN PRN Reason: DOPAMINE EXTRAVASATION Last Admin: 05/24/17 23:15 Dose: 1 gm Ondansetron HCl (Zofran) Confirm Administered Dose 4 mg .ROUTE .STK-MED ONE Stop: 05/21/17 12:01 Pantoprazole Sodium (Protonix Iv) 40 mg IVPUSH Q24H [place] Last Admin: 05/24/17 17:10 Dose: 40 mg Phentolamine Mesylate (Regitine) 5 mg IVPUSH ONETIME ONE Stop: 05/23/17 22:53 Phenylephrine HCl (Valdemar-Synephrine) Confirm Administered Dose 10 mg .ROUTE .STK- MED ONE Stop: 05/21/17 12:01 Propofol (Diprivan 20 Ml) Confirm Administered Dose 200 mg .ROUTE .STK-MED ONE Stop: 05/21/17 12:06 Rocuronium [place] (Zemuron) Confirm Administered Dose 50 mg .ROUTE .STK-MED ONE Stop: 05/21/17 12:01 Succinylcholine Chloride (Succinylcholine In Ns Pf) Confirm Administered Dose 200 mg .ROUTE .STK-MED ONE Stop: 05/21/17 12:01 - Exam Quality Assessment: supplemental oxygen, urine catheter General: alert, oriented, cooperative, no acute distress Neck: supple Lungs: Clear to auscultation, Normal respiratory effort, Decreased breath sounds (both bases) Cardiovascular: Regular Rate, Regular Rhythm, Murmurs Abdomen: soft, no distension, tenderness Extremities: no cyanosis, edema Skin: warm, dry Psy/Mental Status: alert, normal affect - Problem List Review Problem List Initiated/Reviewed/Updated: Yes - My Orders Last 24 Hours: My Active Orders 05/25/17 09:14 PT Evaluation and Treatment [CONS] Routine 05/25/17 14:00 Bumetanide [Bumex] 1 mg PO BIDDIURETIC 05/26/17 05:00 CBC W/O DIFF,HEMOGRAM [HEME] Timed (1) COMPREHENSIVE METABOLIC PN,CMP [CHEM] Timed - Plan Plan:: ASSESSMENT AND PLAN LACTIC ACIDOSIS- resolved -Management of congestive failure as below ACUTE ON CHRONIC SYSTOLIC CONGESTIVE HEART FAILURE - severely decreased left ventricular function estimated at 10-15%. Complicated by severe mitral regurgitation and moderate to severe tricuspid regurgitation with elevation in right-sided pressures. Dopamine infusion stopped overnight. Discussed difficult situation and poor prognosis with patient and family again today. -Trial of bumetanide -Saline lock IV fluids -Carvedilol 3.125 mg by mouth twice a day -Consider trial of ELVIRA inhibitor tomorrow if pressures are stable -Wean off dobutamine ELEVATED LIVER ENZYMES - likely secondary to liver injury associated with poor perfusion. Liver enzymes have improved with current management. -Repeat labs in the morning CHRONIC KIDNEY DISEASE STAGE III WITH ACUTE KIDNEY - acute on chronic kidney failure has been improving with management as above. -Management of CHF as above -Closely monitor urine output and renal function HYPOTHYROIDISM - TSH mildly elevated likely secondary to having missed a few doses. -Repeat TSH in one week -Continue outpatient dosing of levothyroxin PALLIATIVE CARE - she would like medical therapy but is not overly interested in aggressive interventions. She wishes to be DNR/DNI and does not want intubation or mechanical ventilation. MAINTENANCE ISSUES -DVT prophylaxis; Lovenox apparent -GI prophylaxis; PPI -Elena catheter; continuing to monitor urine output, plan to remove tomorrow -Nutrition: low-sodium DISPOSITION - anticipate discharge to home with home health care versus possibly hospice after the hospital stay. initiating physical therapy to evaluate her strength and improve her strength if possible. Alberto Aguero M.D.
[2017-05-25] MEDS: Bumetanide 1 MG Tab PO SCH (14:01)
[2017-05-25] MEDS ORDERED: diphenhydrAMINE 25 MG Cap PO ONE (23:19)
[2017-05-26] MEDS: Levothyroxine 75 MCG Tab PO SCH (08:23)
[2017-05-26] MEDS: Carvedilol 3.125 MG Tab PO SCH ×2 (08:24→21:04)
[2017-05-26] MEDS: Aspirin 81 MG Tab.EC PO SCH (08:24)
[2017-05-26] MEDS: Bumetanide 1 MG Tab PO SCH ×2 (08:24→13:49)
[2017-05-26] MEDS ORDERED: diphenhydrAMINE 25 MG Cap PO PRN (08:37)
[2017-05-26] MEDS ORDERED: Magnesium Hydroxide 400 MG/5 ML Susp 30 ML Cup PO PRN (08:38)
--- NOTE | 2017-05-26 08:42 | PCM.PN ---
- General Info Date of Service: 05/26/17 Functional Status: Reports: pain controlled, tolerating diet - Review of Systems General: Reports: Weakness Gastrointestinal: Reports: Abdominal pain (mild) Systems Review Comment:: No acute events overnight. Patient does not report significant change in how she feels compared to yesterday. Still feels weak and short of breath with activity. She did have some light activity around the room. Blood pressures did dip slightly after the dobutamine was discontinued but have remained in the normal range. Heart rate has remained stable. She did have a good response to diuresis yesterday with net negative more than 1 L of fluid. No dysrhythmias. - Patient Data Vitals - most recent: Last Vital Signs Temp 36.3 C 05/26/17 08:00 Pulse 76 05/25/17 21:29 Resp 16 05/26/17 08:00 BP 102/39 L 05/26/17 08:24 Pulse Ox 96 05/26/17 08:00 Weight - most recent: 58.1 kg I&O - last 24 hours: Intake & Output 05/25/17 05/26/17 05/26/17 22:59 06:59 14:59 Intake Total 888 140 Output Total 895 775 Balance -7 -635 Lab Results last 24 hrs: Laboratory Results - last 24 hr 05/26/17 05/26/17 Range/Units 04:45 04:45 WBC 7.8 (4.5-11.0) K/uL RBC 3.53 (3.30-5.50) M/uL Hgb 10.8 L (12.0-15.0) g/dL Hct 35.7 L (36.0-48.0) % MCV 101 H (80-98) fL MCH 31 (27-31) pg MCHC 30 L (32-36) % Plt Count 88 L (150-400) K/uL Sodium 140 (140-148) mmol/L Potassium 3.5 L (3.6-5.2) mmol/L Chloride 105 (100-108) mmol/L Carbon Dioxide 31 (21-32) mmol/L Anion Gap 7.5 (5.0-14.0) mmol/L BUN 28 H (7-18) mg/dL Creatinine 0.9 (0.6-1.0) mg/dL Est Cr Clr Drug Dosing 33.22 mL/min Estimated GFR (MDRD) 59 L (>60) Glucose 93 (74-106) mg/dL Calcium 7.3 L (8.5-10.1) mg/dL Total Bilirubin 1.5 H (0.2-1.0) mg/dL AST 66 H (15-37) U/L ALT 189 H (12-78) U/L Alkaline Phosphatase 94 (46-116) U/L Total Protein 5.1 L (6.4-8.2) g/dL Albumin 1.6 L (3.4-5.0) g/dL Globulin 3.5 (2.3-3.5) g/dL Albumin/Globulin Ratio 0.5 L (1.2-2.2) Med Orders - Current: Current Medications Aspirin (Halfprin) 81 mg PO DAILY [facility] Last Admin: 05/26/17 08:24 Dose: 81 mg Bumetanide (Bumex) 1 mg PO BIDDIURETIC [facility] Last Admin: 05/26/17 08:24 Dose: 1 mg Carvedilol (Coreg) 3.125 mg PO BID [facility] Last Admin: 05/26/17 08:24 Dose: 3.125 mg Diphenhydramine HCl (Benadryl) 0 mg PO Q4H PRN PRN Reason: ITCHING Sodium Chloride (Normal Saline) 1,000 mls @ 10 mls/hr IV ASDIRECTED [facility] Last Admin: 05/24/17 23:15 Dose: 10 mls/hr Levothyroxine Sodium (Levothyroxine) 75 mcg PO ACBREAKFAST [facility] Last Admin: 05/26/17 08:23 Dose: 75 mcg Morphine Sulfate (Morphine) 1 - 3 mg IV Q1H PRN PRN Reason: PAIN Last Admin: 05/22/17 22:44 Dose: 2 mg Ondansetron HCl (Zofran) 4 mg IV Q8H PRN PRN Reason: N/V Last Admin: 05/22/17 23:28 Dose: 4 mg Potassium Chloride (Klor-Con M20) 40 meq PO ONETIME ONE Stop: 05/26/17 09:01 Promethazine HCl (Phenergan) 12.5 - 25 mg IV Q8H PRN PRN Reason: N/V Discontinued Medications Acetaminophen (Tylenol) 650 mg RECTAL NOW ONE Stop: 05/21/17 10:46 Last Admin: 05/21/17 11:06 Dose: 650 mg Bupivacaine HCl/Epinephrine Bitart (Marcaine 0.5%/Epinephrine 1:200,000) Confirm Administered Dose 50 ml .ROUTE .STK-MED ONE Stop: 05/21/17 11:50 Last Admin: 05/21/17 12:50 Dose: 30 ml Dexamethasone (Dexamethasone) Confirm Administered Dose 4 mg .ROUTE .STK-MED ONE Stop: 05/21/17 12:01 Dextrose/Water (Dextrose 50% In Water) 25 ml IVPUSH ONETIME ONE Stop: 05/22/17 06:46 Last Admin: 05/22/17 06:45 Dose: 25 ml Diphenhydramine HCl (Benadryl) 25 - 50 mg IV Q4H PRN PRN Reason: ITCHING Last Admin: 05/21/17 22:52 Dose: 25 mg Diphenhydramine HCl (Benadryl) 25 mg PO ONETIME ONE Stop: 05/25/17 23:20 Last Admin: 05/25/17 23:31 Dose: 25 mg Enoxaparin Sodium (Lovenox) 30 mg SUBCUT DAILY [facility] Last Admin: 05/21/17 18:34 Dose: 30 mg Enoxaparin Sodium (Lovenox) 30 mg SUBCUT Q24H [facility] Last Admin: 05/22/17 18:09 Dose: 30 mg Fentanyl (Sublimaze) Confirm Administered Dose 250 mcg .ROUTE .STK-MED ONE Stop: 05/21/17 12:01 Fentanyl (Sublimaze) 10 - 30 mcg IV Q1H PRN PRN Reason: PAIN Last Admin: 05/21/17 23:56 Dose: 30 mcg Furosemide (Lasix) 40 mg IVPUSH NOW ONE Stop: 05/25/17 08:01 Last Admin: 05/25/17 07:37 Dose: 40 mg Glycopyrrolate () Confirm Administered Dose 1 mg .ROUTE .STK-MED ONE Stop: 05/21/17 12:01 Lactated Ringer's (Ringers, Lactated) 1,000 mls @ 999 mls/hr IV ASDIRECTED [facility] Last Admin: 05/21/17 09:08 Dose: 999 mls/hr Ampicillin Sodium/Sulbactam (Sodium 3 gm/ Sodium Chloride) 100 mls @ 200 mls/ hr IV ONETIME ONE Stop: 05/21/17 10:29 Last Admin: 05/21/17 10:05 Dose: 200 mls/hr Lactated Ringer's (Ringers, Lactated) 1,000 mls @ 300 mls/hr IV ASDIRECTED [place] Last Admin: 05/21/17 10:40 Dose: 300 mls/hr Aztreonam/Dextrose 1 gm/ (Premix) 50 mls @ 100 mls/hr IV ONETIME ONE Stop: 05/21/17 10:59 Last Admin: 05/21/17 10:40 Dose: 100 mls/hr Sodium Chloride (Normal Saline) 1,000 mls @ 125 mls/hr IV ASDIRECTED [place] Last Admin: 05/21/17 14:44 Dose: 125 mls/hr Ampicillin Sodium/Sulbactam (Sodium 1.5 gm/ Sodium Chloride) 50 mls @ 100 mls/ hr IV Q6H [place] Last Admin: 05/22/17 04:17 Dose: 100 mls/hr Aztreonam/Dextrose 1 gm/ (Premix) 50 mls @ 100 mls/hr IV Q8H [place] Last Admin: 05/22/17 02:23 Dose: 100 mls/hr Sodium Chloride (Normal Saline) 1,000 mls @ 75 mls/hr IV ASDIRECTED [place] Last Admin: 05/22/17 02:27 Dose: 75 mls/hr Dobutamine HCl/Dextrose (Dobutamine In D5w 250 Mg/250 Ml) 250 mg in 250 mls @ 6.756 mls/hr IV TITRATE [place]; 2 MCG/KG/MIN PRN Reason: Protocol Stop: 05/23/17 15:00 Last Admin: 05/23/17 06:59 Dose: 8 mcg/kg/min, 27.024 mls/hr Sodium Chloride (Normal Saline) 1,000 mls @ 25 mls/hr IV ASDIRECTED [place] Last Admin: 05/22/17 16:27 Dose: 25 mls/hr Dopamine HCl/Dextrose (Dopamine In D5w 400 Mg/250 Ml) 400 mg in 250 mls @ 4.223 mls/hr IV TITRATE [place]; 2 MCG/KG/MIN PRN Reason: Protocol Last Titration: 05/25/17 05:37 Dose: 0 mcg/kg/min, 0 mls/hr Sodium Chloride (Normal Saline) 500 mls @ 250 mls/hr IV ASDIRECTED ONE Stop: 05/22/17 20:14 Last Admin: 05/22/17 18:08 Dose: 250 mls/hr Sodium Chloride (Normal Saline) 1,000 mls @ 125 mls/hr IV ASDIRECTED [place] Sodium Chloride (Normal Saline) 1,000 mls @ 50 mls/hr IV ASDIRECTED [place] Last Admin: 05/23/17 02:27 Dose: 50 mls/hr Dobutamine HCl 250 mg/ Sodium (Chloride) 250 mls @ 7.03 mls/hr IV TITRATE [place]; 2 MCG/KG/MIN PRN Reason: Protocol Last Titration: 05/25/17 13:59 Dose: 0 mcg/kg/min, 0 mls/hr Sodium Chloride (Normal Saline) 250 mls @ 999 mls/hr IV .BOLUS ONE Stop: 05/23/17 13:41 Last Admin: 05/23/17 17:33 Dose: Not Given Sodium Chloride (Normal Saline) 1,000 mls @ 50 mls/hr IV ASDIRECTED [place] Sodium Chloride (Normal Saline) 250 mls @ 125 mls/hr IV ONETIME ONE Stop: 05/23/17 19:29 Last Admin: 05/23/17 13:40 Dose: 125 mls/hr Sodium Chloride (Normal Saline) 1,000 mls @ 50 mls/hr IV ASDIRECTED [place] Last Admin: 05/23/17 17:00 Dose: 50 mls/hr Metoprolol Tartrate (Lopressor) 12.5 mg PO Q6H [facility] Last Admin: 05/23/17 10:14 Dose: Not Given Neostigmine Methylsulfate (Neostigmine) Confirm Administered Dose 5 mg .ROUTE .STK-MED ONE Stop: 05/21/17 12:01 Nicotine (Habitrol) 14 mg TRDERM Q24H PRN PRN Reason: SMOKING CESSATION Nitroglycerin (Nitro-Bid 2%) 1 gm TOP ONETIME ONE Stop: 05/23/17 23:34 Last Admin: 05/23/17 23:50 Dose: 1 gm Nitroglycerin (Nitro-Bid 2%) 1 gm TOP ONETIME ONE Stop: 05/24/17 15:31 Last Admin: 07/16/17 15:35 Dose: 1 gm Nitroglycerin (Nitro-Bid 2%) 1 gm TOP Q8H PRN PRN Reason: DOPAMINE EXTRAVASATION Last Admin: 05/24/17 23:15 Dose: 1 gm Ondansetron HCl (Zofran) Confirm Administered Dose 4 mg .ROUTE .STK-MED ONE Stop: 05/21/17 12:01 Pantoprazole Sodium (Protonix Iv) 40 mg IVPUSH Q24H [place] Last Admin: 05/24/17 17:10 Dose: 40 mg Phentolamine Mesylate (Regitine) 5 mg IVPUSH ONETIME ONE Stop: 05/23/17 22:53 Phenylephrine HCl (Valdemar-Synephrine) Confirm Administered Dose 10 mg .ROUTE .STK- MED ONE Stop: 05/21/17 12:01 Propofol (Diprivan 20 Ml) Confirm Administered Dose 200 mg .ROUTE .STK-MED ONE Stop: 05/21/17 12:06 Rocuronium [place] (Zemuron) Confirm Administered Dose 50 mg .ROUTE .STK-MED ONE Stop: 05/21/17 12:01 Scopolamine (Transderm-Scop) 1.5 mg TOP Q72H PRN PRN Reason: N/V Succinylcholine Chloride (Succinylcholine In Ns Pf) Confirm Administered Dose 200 mg .ROUTE .STK-MED ONE Stop: 05/21/17 12:01 - Exam Quality Assessment: supplemental oxygen, urine catheter General: alert, oriented, cooperative, no acute distress Neck: supple, JVD (mild) Lungs: Clear to auscultation, Normal respiratory effort, Decreased breath sounds (mild at bases) Cardiovascular: Regular Rate, Regular Rhythm, Murmurs Abdomen: soft, no distension, tenderness Extremities: no cyanosis, edema (mild bilateral ankle edema and mild edema around the elbows) Skin: warm, dry Psy/Mental Status: alert, normal affect - Problem List Review Problem List Initiated/Reviewed/Updated: Yes - My Orders Last 24 Hours: My Active Orders 05/25/17 09:14 PT Evaluation and Treatment [CONS] Routine 05/25/17 12:12 Consult to Spiritual Care [CONS] Routine 05/25/17 14:00 Bumetanide [Bumex] 1 mg PO BIDDIURETIC 05/25/17 Dinner Low Sodium [Sodium Restricted Diet] [DIET] 05/26/17 08:37 Transfer Patient (Change bed) [ADT] Routine DC Elena Catheter [Urinary Catheter Removal] [RC] Per Unit Routine diphenhydrAMINE [Benadryl] 25 mg PO BEDTIME PRN 05/26/17 08:38 Discontinue Telemetry Monitoring [Cardiac Monitoring Discontinue] [RC] Click to Edit Docusate Sodium/Sennosides [Senna Plus] 1 tab PO BID PRN Magnesium Hydroxide [Milk of Magnesia] 30 ml PO BID PRN 05/26/17 09:00 Potassium Chloride [Klor-Con M20] 40 meq PO ONETIME ONE 05/27/17 05:00 BASIC METABOLIC PANEL,BMP [CHEM] Timed CBC W/O DIFF,HEMOGRAM [HEME] Timed (1) - Plan Plan:: ASSESSMENT AND PLAN ACUTE ON CHRONIC SYSTOLIC CONGESTIVE HEART FAILURE - severely decreased left ventricular function estimated at 10-15%. Complicated by severe mitral regurgitation and moderate to severe tricuspid regurgitation with elevation in right-sided pressures. Stable after dopamine and dobutamine infusions were discontinued. Good response to diuresis yesterday but still requiring supplemental oxygen. She does not have sufficient blood pressure at this time to start an ELVIRA inhibitor. -Continue twice daily bumetanide, consider transition to once daily tomorrow -Saline lock IV fluids -Carvedilol 3.125 mg by mouth twice a day -Consider trial of ELVIRA inhibitor tomorrow if pressures are stable GENERALIZED WEAKNESS - secondary to her cardiac function, patient requires a fair amount of assistance to get into and out of bed. She would very much like to go home but may be too weak to go there safely. -Physical therapy -Consider home with home health care versus subacute rehabilitation ELEVATED LIVER ENZYMES - likely secondary to liver injury associated with poor perfusion. Liver enzymes have improved with current management. -Repeat labs in 2 or 3 days CHRONIC KIDNEY DISEASE STAGE III WITH ACUTE KIDNEY - renal function stable after dobutamine discontinued. -Management of CHF as above -Closely monitor urine output and renal function HYPOTHYROIDISM - TSH mildly elevated, likely secondary to having missed a few doses. -Repeat TSH in one week -Continue outpatient dosing of levothyroxine PALLIATIVE CARE - she would like medical therapy but is not overly interested in aggressive interventions. She wishes to be DNR/DNI and does not want intubation or mechanical ventilation. MAINTENANCE ISSUES -DVT prophylaxis; enoxaparin -GI prophylaxis; PPI -Elena catheter; plan to remove today -Nutrition: low-sodium DISPOSITION - anticipate discharge to home with home health care versus possibly hospice after the hospital stay. she will be transferred out of the intensive care unit today. Ablerto Aguero M.D.
[2017-05-26] MEDS ORDERED: Potassium Chloride 20 MEQ Tab.ER PO ONE (09:00)
[2017-05-26] MEDS ORDERED: Acetaminophen 325 MG Tab PO PRN (16:21)
[2017-05-26] MEDS ORDERED: oxyCODONE 5 MG Tab PO PRN (16:22)
[2017-05-27] MEDS: Levothyroxine 75 MCG Tab PO SCH (07:39)
[2017-05-27] MEDS ORDERED: Potassium Chloride 20 MEQ Tab.ER PO ONE (09:00)
[2017-05-27] MEDS: Carvedilol 3.125 MG Tab PO SCH (09:45)
[2017-05-27] MEDS: Aspirin 81 MG Tab.EC PO SCH (09:47)
[2017-05-27] MEDS: Bumetanide 1 MG Tab PO SCH (09:47)
[2017-05-27] MEDS ORDERED: Sodium Phosphate,Monobasic/Sodium Phosphate,Dibasic Enema 133 ML Bottle RECTAL ONE (10:30)
[2017-05-27 11:11] VITALS: BP 111/59
--- NOTE | 2017-05-27 15:02 | PCM.DCSUM1 ---
Discharge Summary - Hospital Course Brief History: 89 -year-old female with history of systolic congestive heart failure who presented with weakness, orthopnea and peripheral edema. Workup in the emergency room was remarkable for severe lactic acidosis and she was taken emergently to the operating room with concern for bowel ischemia. - Discharge Data Discharge Date: 05/27/17 Discharge Disposition: DC/Tfer to SNF 03 Condition: Fair - Discharge Diagnosis/Problem(s) (1) Systolic CHF with reduced left ventricular function, NYHA class 3 SNOMED Code(s): 906724446, 484110147 ICD Code: I50.20 - UNSPECIFIED SYSTOLIC (CONGESTIVE) HEART FAILURE Status: Acute Current Visit: Yes Problem Details: EF 10-15% (2) Lactic acidosis SNOMED Code(s): 24661256 ICD Code: E87.2 - ACIDOSIS Status: Acute Current Visit: Yes Problem Details: 2/2 hypoperfusion with Acute CHF (3) MARYAN (acute kidney injury) SNOMED Code(s): 46352443 ICD Code: N17.9 - ACUTE KIDNEY FAILURE, UNSPECIFIED Status: Acute Current Visit: Yes (4) Hypokalemia SNOMED Code(s): 82479965 ICD Code: E87.6 - HYPOKALEMIA Status: Acute Current Visit: Yes (5) Elevated liver enzymes SNOMED Code(s): 299496397, 868644192 ICD Code: R74.8 - ABNORMAL LEVELS OF OTHER SERUM ENZYMES Status: Acute Current Visit: Yes - Patient Summary/Data Operative Procedure(s) Performed: Dr. Acosta performed an exploratory laparotomy to assess for bowel ischemia or necrotic gallbladder disease Consults: Consultations 05/25/17 09:14 PT Evaluation and Treatment [CONS] Routine Please Evaluate and Treat. PT Reason for Consult: Strengthening This query below is only for informational purposes and is not editable. Admission Diagnosis/Problem: Abdominal bloating 05/25/17 12:12 Consult to Spiritual Care [CONS] Routine Special Instructions: polst for DNR headed home tomorrow Recommended Follow-up Testing/Procedures: repeat BMP early next week to reassess kidney function and potassium level Hospital Course: Honey presented to the emergency room with weakness, orthopnea and peripheral edema. Workup in the emergency room was remarkable for severe lactic acidosis as well as significant elevation of the liver enzymes. Given the laboratory abnormalities there was concern for possibly ischemic bowel or potentially a necrotic gallbladder. Antibiotics were initiated and she was taken urgently to the operating room. Dr. Acosta performed an exploratory laparotomy which revealed no evidence for gallbladder disease but did show diffuse dusky appearance of the intestines. There is no evidence for focal intestinal ischemia or necrotic bowel. He concluded the surgical procedure at this time and thought the dusky appearance was related to hypoperfusion. The patient was admitted to the intensive care unit and an echocardiogram was obtained upon her arrival there. This revealed an ejection fraction 10-15% which was less than her previous echocardiograms had shown. Overnight following admission she had some difficulty with low urine output and did receive some gentle fluid challenges. Next morning her urine output remained low and clinically she had signs and symptoms consistent with acute congestive heart failure. Kidney function and elevated AST and ALTs had improved slightly. The dire situation was discussed with the family and a trial of dobutamine was recommended. the patient was started on a dobutamine infusion with the plan to continue this for 72 hours to see if cardiac function could be improved and the significant lab abnormalities could be improved. Over the next 24 hours she continued to have difficulty with low urine output and dopamine was added. the abnormal hepatic panel tests as well as her kidney function did show slight improvement and this trended continue over the next 48 hours. Her urine output did remain on the low side did improve slightly with the dobutamine and dopamine combination. Clinically she did have some slight improvement in her symptoms and signs for congestive heart failure. Abdominal pain from the surgical incision has been fairly well-controlled. On May 25 the dobutamine infusion was complete and was slowly weaned down during the course of the day. At this point she had shown significant improvement in her hepatic panel numbers as well as her kidney function. Urine output has remained on the low side but has been acceptable. Bedside examination stay suggested volume overload with jugular venous distention and peripheral edema. Diuresis was initiated on this day and she has responded well to the diuresis. With 48 hours of diuresis we have been able to wean her off of her supplemental oxygen. Kidney function has remained stable. Symptomatically she is stable over the past 48 hours and remains very short of breath with any activity but is comfortable at rest. She has tolerated the initiation of carvedilol to help manage her systolic congestive heart failure. We have not been able to add an ELVIRA inhibitor due to borderline hypotension. We have transitioned her to once daily bumetanide to help maintain her volume status which she has been tolerating well. We have had multiple discussions with the patient and the family throughout the hospital stay about the very poor prognosis given her severely reduced left ventricular function complicated by severe mitral regurgitation and moderately severe tricuspid regurgitation. This point I don't believe she is a good candidate for surgical intervention and any sort of valve surgery would likely be deadly for her. At this point the patient and the family have chosen to go to the [facility] for subacute rehabilitation. If she does well she may be able to go home with home care. If her congestive heart failure limits her ability to gain strength and endurance family is leaning towards the patient going home with hospice services. She is stable and safe for [facility] discharge at this time. - Patient Instructions Diet: Low Sodium (2 gram ) Activity: As Tolerated Showering/Bathing: May Shower Notify Provider of: Fever, Increased Pain Other/Special Instructions: 1. You were in the hospital for management of acute decompensated congestive heart failure with left ventricular systolic dysfunction. Your ejection fraction is approximately 10-15% (severely reduced). We have made several medication adjustments to help reduce stress hormones produced by the heart and hopefully improve cardiac function. The significant decline in your kidney function and elevation in your liver enzymes was related to poor perfusion with congestive heart failure. These numbers have improved with treatment for congestive heart failure. Unfortunately, with the severely reduced ejection fraction the prognosis is poor for recovery of cardiac function. I recommend subacute rehabilitation to see if you can gain strength and endurance. We have discussed hospice care and this may be appropriate if your cardiac function limits your ability to get stronger to a significant degree. 2. Code status - DO NOT RESUSCITATE and DO NOT INTUBATE. 3. Referral to physical therapy and occupational therapy for strengthening. 4. Medication changes are outlined in the medication reconciliation form. 5. Repeat BMP early next week, about June 01 or - diagnoses acute kidney injury and hypokalemia. 6. Please seek medical attention if you develop fever greater than 101, have sudden worsening of your shortness of breath, you develop chest pain or if your severe abdominal pain returns. - Discharge Plan Prescriptions/Med Rec: Acetaminophen [Tylenol] 650 mg PO Q4H PRN #100 tablet PRN Reason: Pain/Fever Bumetanide [Bumex] 1 mg PO DAILY #30 tablet Carvedilol [Coreg] 3.125 mg PO BID #60 tablet Docusate Sodium/Sennosides [Senna Plus] 1 tab PO BID PRN #60 tablet PRN Reason: Constipation Potassium Chloride [K-Tab ER] 20 meq PO DAILY #30 tablet.er oxyCODONE 2.5 mg PO Q4H PRN #30 tablet PRN Reason: Pain (Moderate 4-6) Home Medications: Home Meds Aspirin [Halfprin] 81 mg PO DAILY 09/19/16 [History] Levothyroxine 75 mcg PO ACBREAKFAST 09/19/16 [History] Simvastatin [Zocor] 40 mg PO DAILY 09/19/16 [History] Acetaminophen [Tylenol] 650 mg PO Q4H PRN #100 tablet 05/27/17 [Rx] Bumetanide [Bumex] 1 mg PO DAILY #30 tablet 05/27/17 [Rx] Carvedilol [Coreg] 3.125 mg PO BID #60 tablet 05/27/17 [Rx] Docusate Sodium/Sennosides [Senna Plus] 1 tab PO BID PRN #60 tablet 05/27/17 [Rx ] Potassium Chloride [K-Tab ER] 20 meq PO DAILY #30 tablet.er 05/27/17 [Rx] oxyCODONE 2.5 mg PO Q4H PRN #30 tablet 05/27/17 [Rx] Patient Handouts: Heart Failure Referrals: Fransico Vázquez MD [Primary Care Provider] - (f/u with Dr Vázquez as needed ) - Discharge Summary/Plan Comment DC Time >30 min.: Yes (45 - new [facility] discharge) - Patient Data Vitals - Most Recent: Last Vital Signs Temp 36.7 C 05/27/17 11:07 Pulse 87 05/27/17 11:07 Resp 16 05/27/17 11:07 BP 111/59 L 05/27/17 11:07 Pulse Ox 94 L 05/27/17 11:07 Weight - Most Recent: 58.1 kg I&O - Last 24 hours: Intake & Output 05/26/17 05/27/17 05/27/17 22:59 06:59 14:59 Output Total 500 300 Balance -500 -300 Lab Results - Last 24 hrs: Laboratory Results - last 24 hr 05/27/17 05/27/17 Range/Units 05:40 05:40 WBC 6.9 (4.5-11.0) K/uL RBC 3.90 (3.30-5.50) M/uL Hgb 12.1 (12.0-15.0) g/dL Hct 39.0 (36.0-48.0) % MCV 100 H (80-98) fL MCH 31 (27-31) pg MCHC 31 L (32-36) % Plt Count 111 L (150-400) K/uL Sodium 140 (140-148) mmol/L Potassium 3.5 L (3.6-5.2) mmol/L Chloride 104 (100-108) mmol/L Carbon Dioxide 32 (21-32) mmol/L Anion Gap 7.5 (5.0-14.0) mmol/L BUN 24 H (7-18) mg/dL Creatinine 0.8 (0.6-1.0) mg/dL Est Cr Clr Drug Dosing 37.38 mL/min Estimated GFR (MDRD) > 60 (>60) Glucose 90 (74-106) mg/dL Calcium 7.3 L (8.5-10.1) mg/dL Med Orders - Current: Current Medications Acetaminophen (Tylenol) 650 mg PO Q4H PRN PRN Reason: Pain/Fever Aspirin (Halfprin) 81 mg PO DAILY [facility] Last Admin: 05/27/17 09:47 Dose: 81 mg Bumetanide (Bumex) 1 mg PO DAILY [facility] Carvedilol (Coreg) 3.125 mg PO BID [facility] Last Admin: 05/27/17 09:45 Dose: 3.125 mg Diphenhydramine HCl (Benadryl) 0 mg PO Q4H PRN PRN Reason: ITCHING Diphenhydramine HCl (Benadryl) 25 mg PO BEDTIME PRN PRN Reason: Sleep Levothyroxine Sodium (Levothyroxine) 75 mcg PO ACBREAKFAST [facility] Last Admin: 05/27/17 07:39 Dose: 75 mcg Magnesium Hydroxide (Milk Of Magnesia) 30 ml PO BID PRN PRN Reason: Constipation Morphine Sulfate (Morphine) 1 - 3 mg IV Q1H PRN PRN Reason: PAIN Last Admin: 05/22/17 22:44 Dose: 2 mg Ondansetron HCl (Zofran) 4 mg IV Q8H PRN PRN Reason: N/V Last Admin: 05/22/17 23:28 Dose: 4 mg Oxycodone HCl (Oxycodone) 2.5 - 5 mg PO Q4H PRN PRN Reason: Pain Last Admin: 05/26/17 16:30 Dose: 5 mg Promethazine HCl (Phenergan) 12.5 - 25 mg IV Q8H PRN PRN Reason: N/V Senna/Docusate Sodium (Senna Plus) 1 tab PO BID PRN PRN Reason: Constipation Discontinued Medications Acetaminophen (Tylenol) 650 mg RECTAL NOW ONE Stop: 05/21/17 10:46 Last Admin: 05/21/17 11:06 Dose: 650 mg Bumetanide (Bumex) 1 mg PO BIDDIURETIC [place] Last Admin: 05/27/17 09:47 Dose: 1 mg Bupivacaine HCl/Epinephrine Bitart (Marcaine 0.5%/Epinephrine 1:200,000) Confirm Administered Dose 50 ml .ROUTE .STK-MED ONE Stop: 05/21/17 11:50 Last Admin: 05/21/17 12:50 Dose: 30 ml Dexamethasone (Dexamethasone) Confirm Administered Dose 4 mg .ROUTE .STK-MED ONE Stop: 05/21/17 12:01 Dextrose/Water (Dextrose 50% In Water) 25 ml IVPUSH ONETIME ONE Stop: 05/22/17 06:46 Last Admin: 05/22/17 06:45 Dose: 25 ml Diphenhydramine HCl (Benadryl) 25 - 50 mg IV Q4H PRN PRN Reason: ITCHING Last Admin: 05/21/17 22:52 Dose: 25 mg Diphenhydramine HCl (Benadryl) 25 mg PO ONETIME ONE Stop: 05/25/17 23:20 Last Admin: 05/25/17 23:31 Dose: 25 mg Enoxaparin Sodium (Lovenox) 30 mg SUBCUT DAILY [place] Last Admin: 05/21/17 18:34 Dose: 30 mg Enoxaparin Sodium (Lovenox) 30 mg SUBCUT Q24H [place] Last Admin: 05/22/17 18:09 Dose: 30 mg Fentanyl (Sublimaze) Confirm Administered Dose 250 mcg .ROUTE .STK-MED ONE Stop: 05/21/17 12:01 Fentanyl (Sublimaze) 10 - 30 mcg IV Q1H PRN PRN Reason: PAIN Last Admin: 05/21/17 23:56 Dose: 30 mcg Furosemide (Lasix) 40 mg IVPUSH NOW ONE Stop: 05/25/17 08:01 Last Admin: 05/25/17 07:37 Dose: 40 mg Glycopyrrolate () Confirm Administered Dose 1 mg .ROUTE .STK-MED ONE Stop: 05/21/17 12:01 Lactated Ringer's (Ringers, Lactated) 1,000 mls @ 999 [facility] Last Admin: 05/21/17 09:08 Dose: 999 mls/hr Ampicillin Sodium/Sulbactam (Sodium 3 gm/ Sodium Chloride) 100 mls @ 200 mls/ hr IV ONETIME ONE Stop: 05/21/17 10:29 Last Admin: 05/21/17 10:05 Dose: 200 mls/hr Lactated Ringer's (Ringers, Lactated) 1,000 mls @ 300 [facility] Last Admin: 05/21/17 10:40 Dose: 300 mls/hr Aztreonam/Dextrose 1 gm/ (Premix) 50 mls @ 100 mls/hr IV ONETIME ONE Stop: 05/21/17 10:59 Last Admin: 05/21/17 10:40 Dose: 100 mls/hr Sodium Chloride (Normal Saline) 1,000 mls @ 125 mls/hr IV ASDIRECTED [facility] Last Admin: 05/21/17 14:44 Dose: 125 mls/hr Ampicillin Sodium/Sulbactam (Sodium 1.5 gm/ Sodium Chloride) 50 mls @ 100 mls/ hr IV Q6H [facility] Last Admin: 05/22/17 04:17 Dose: 100 mls/hr Aztreonam/Dextrose 1 gm/ (Premix) 50 mls @ 100 mls/hr IV Q8H [facility] Last Admin: 05/22/17 02:23 Dose: 100 mls/hr Sodium Chloride (Normal Saline) 1,000 mls @ 75 mls/hr IV ASDIRECTED [facility] Last Admin: 05/22/17 02:27 Dose: 75 mls/hr Dobutamine HCl/Dextrose (Dobutamine In D5w 250 Mg/250 Ml) 250 mg in 250 mls @ 6.756 mls/hr IV TITRATE [place]; 2 MCG/KG/MIN PRN Reason: Protocol Stop: 05/23/17 15:00 Last Admin: 05/23/17 06:59 Dose: 8 mcg/kg/min, 27.024 mls/hr Sodium Chloride (Normal Saline) 1,000 mls @ 25 mls/hr IV ASDIRECTED [place] Last Admin: 05/22/17 16:27 Dose: 25 mls/hr Dopamine HCl/Dextrose (Dopamine In D5w 400 Mg/250 Ml) 400 mg in 250 mls @ 4.223 mls/hr IV TITRATE [place]; 2 MCG/KG/MIN PRN Reason: Protocol Last Titration: 05/25/17 05:37 Dose: 0 mcg/kg/min, 0 mls/hr Sodium Chloride (Normal Saline) 500 mls @ 250 mls/hr IV ASDIRECTED ONE Stop: 05/22/17 20:14 Last Admin: 05/22/17 18:08 Dose: 250 mls/hr Sodium Chloride (Normal Saline) 1,000 mls @ 125 mls/hr IV ASDIRECTED [place] Sodium Chloride (Normal Saline) 1,000 mls @ 50 mls/hr IV ASDIRECTED [place] Last Admin: 05/23/17 02:27 Dose: 50 mls/hr Dobutamine HCl 250 mg/ Sodium (Chloride) 250 mls @ 7.03 mls/hr IV TITRATE [place]; 2 MCG/KG/MIN PRN Reason: Protocol Last Titration: 05/25/17 13:59 Dose: 0 mcg/kg/min, 0 mls/hr Sodium Chloride (Normal Saline) 250 mls @ 999 mls/hr IV .BOLUS ONE Stop: 05/23/17 13:41 Last Admin: 05/23/17 17:33 Dose: Not Given Sodium Chloride (Normal Saline) 1,000 mls @ 50 mls/hr IV ASDIRECTED [place] Sodium Chloride (Normal Saline) 250 mls @ 125 mls/hr IV ONETIME ONE Stop: 05/23/17 19:29 Last Admin: 05/23/17 13:40 Dose: 125 mls/hr Sodium Chloride (Normal Saline) 1,000 mls @ 50 mls/hr IV ASDIRECTED [place] Last Admin: 05/23/17 17:00 Dose: 50 mls/hr Sodium Chloride (Normal Saline) 1,000 mls @ 10 mls/hr IV ASDIRECTED [facility] Last Admin: 05/24/17 23:15 Dose: 10 mls/hr Metoprolol Tartrate (Lopressor) 12.5 mg PO Q6H [facility] Last Admin: 05/23/17 10:14 Dose: Not Given Neostigmine Methylsulfate (Neostigmine) Confirm Administered Dose 5 mg .ROUTE .STK-MED ONE Stop: 05/21/17 12:01 Nicotine (Habitrol) 14 mg TRDERM Q24H PRN PRN Reason: SMOKING CESSATION Nitroglycerin (Nitro-Bid 2%) 1 gm TOP ONETIME ONE Stop: 05/23/17 23:34 Last Admin: 05/23/17 23:50 Dose: 1 gm Nitroglycerin (Nitro-Bid 2%) 1 gm TOP ONETIME ONE Stop: 05/24/17 15:31 Last Admin: 05/24/17 15:35 Dose: 1 gm Nitroglycerin (Nitro-Bid 2%) 1 gm TOP Q8H PRN PRN Reason: DOPAMINE EXTRAVASATION Last Admin: 05/24/17 23:15 Dose: 1 gm Ondansetron HCl (Zofran) Confirm Administered Dose 4 mg .ROUTE .STK-MED ONE Stop: 05/21/17 12:01 Pantoprazole Sodium (Protonix Iv) 40 mg IVPUSH Q24H [facility] Last Admin: 05/24/17 17:10 Dose: 40 mg Phentolamine Mesylate (Regitine) 5 mg IVPUSH ONETIME ONE Stop: 05/23/17 22:53 Phenylephrine HCl (Valdemar-Synephrine) Confirm Administered Dose 10 mg .ROUTE .STK- MED ONE Stop: 05/21/17 12:01 Potassium Chloride (Klor-Con M20) 40 meq PO ONETIME ONE Stop: 05/26/17 09:01 Last Admin: 05/26/17 09:31 Dose: 40 meq Potassium Chloride (Klor-Con M20) 40 meq PO ONETIME ONE Stop: 05/27/17 09:01 Last Admin: 05/27/17 09:48 Dose: 40 meq Propofol (Diprivan 20 Ml) Confirm Administered Dose 200 mg .ROUTE .STK-MED ONE Stop: 05/21/17 12:06 Rocuronium [place] (Zemuron) Confirm Administered Dose 50 mg .ROUTE .STK-MED ONE Stop: 05/21/17 12:01 Scopolamine (Transderm-Scop) 1.5 mg TOP Q72H PRN PRN Reason: N/V Sodium Biphosphate/Sodium Phosphate (Fleet Enema) 133 ml RECTAL ONETIME ONE Stop: 05/27/17 10:31 Last Admin: 05/27/17 13:57 Dose: 1 enema Succinylcholine Chloride (Succinylcholine In Ns Pf) Confirm Administered Dose 200 mg .ROUTE .STK-MED ONE Stop: 05/21/17 12:01 *Q Meaningful Use (DIS) - VTE *Q VTE Criteria *Q: - Stroke *Q Stroke Criteria *Q: - AMI *Q AMI Criteria *Q:
[2017-05-28] MEDS ORDERED: Bumetanide 1 MG Tab PO SCH (09:00)
--- NOTE | 2017-06-01 08:55 | OR ---
DATE OF PROCEDURE: 05/21/2017 PROCEDURE: 1. Diagnostic laparoscopy. 2. Liver biopsy, Domingo-cut. COMPLICATIONS: None. ASSISTANT COMMISSIONER: None. INDICATIONS: An 89-year-old female with elevated bilirubin, abdominal pain, and a CT scan, which showed no abnormalities. The concern here is for an ischemic bowel; therefore, the patient be taken for diagnostic laparoscopy to rule this out. Risks, benefits, alternatives, and limitations, including, but not limited to infection, bleeding, and perforation of abdominal structures such as bowel or bladder were explained and the patient wishes to proceed. PREOPERATIVE DIAGNOSIS: Abdominal pain. POSTOPERATIVE DIAGNOSIS: Abdominal pain. PROCEDURE IN DETAIL: The patient was placed in supine position. A supraumbilical curvilinear incision was made. A Veress needle was used to enter the abdomen without abnormality and a drop test was performed without abnormality. An additional 10 and additional 5 mm ports were entered in the right abdomen under direct visualization. The abdomen was inspected and it was noted immediately that the entire abdominal contents were poorly vascularized. This vascularity was not consistent with any specific arterial arcades. Rather this appeared to show hypoperfusion with respect to the superior mesenteric, celiac, and inferior mesenteric arteries. A liver biopsy was performed of the liver using a Domingo-Cut biopsy, single additional skin incision was made. The Domingo-Cut was inserted and the biopsy was performed. The liver was inspected posteriorly and no through and through injury was noted. Electrocautery was again used to control bleeding, which was minimal. The bowel was inspected and ran in a retrograde fashion. No evidence of narrowing, stricture, or any abnormality. No blood, free fluid, or abnormality was noted. The diagnosis of this diagnostic laparoscopy would be hypoperfusion secondary to a global perfusion most likely cardiac in nature. The patient tolerated the procedure well. The wound was closed with 3-0 Vicryl and 4-0 Vicryl interrupted running fashion. Dermabond was applied. The patient tolerated the procedure well. Subhash Acosta MD /[id number]
== END 2017-05-27 14:30 | DRG 981 ==
LOC: JP.ED 08:18 → JP.SDS 11:53 → JP.ICU 13:59 → JP.MS 05-25 09:10 → JP.ICU 05-25 09:12 → JP.2SS 05-26 13:55 → JP.MS 05-26 13:59
PROVIDERS: ADMIT Surgery; ATTEND Internal Medicine
PROC: 0WJP4ZZ Inspection of Gastrointestinal Tract, Percutaneous Endoscopic Approach (ICD-10-PCS; principal; 2017-05-21)
PROC: 0FB04ZX Excision of Liver, Percutaneous Endoscopic Approach, Diagnostic (ICD-10-PCS; 2017-05-21)
DX: I13.0 Hypertensive heart and chronic kidney disease with heart failure and stage 1 through stage 4 chronic kidney disease, or unspecified chronic kidney disease (principal); I50.23 Acute on chronic systolic (congestive) heart failure; N17.9 Acute kidney failure, unspecified; E87.2 Acidosis; K55.8 Other vascular disorders of intestine; N18.3 Chronic kidney disease, stage 3 (moderate); E03.9 Hypothyroidism, unspecified; Z95.0 Presence of cardiac pacemaker; R10.32 Left lower quadrant pain; R53.1 Weakness; R17 Unspecified jaundice; E87.6 Hypokalemia; Z66 Do not resuscitate; Z51.5 Encounter for palliative care; E86.0 Dehydration; R06.02 Shortness of breath; R79.89 Other specified abnormal findings of blood chemistry; I34.0 Nonrheumatic mitral (valve) insufficiency; I36.1 Nonrheumatic tricuspid (valve) insufficiency; M19.90 Unspecified osteoarthritis, unspecified site; E78.00 Pure hypercholesterolemia, unspecified; H54.7 Unspecified visual loss
CPT/HCPCS: 36415; 36600; 47379; 49320; 51702; 71010 ×2; 74176 ×2; 76705 ×2; 80053; 81001; 82272; 82550; 83605; 83690; 83880; 85025; 86140; 87040 ×2; 87070 ×2; 87075 ×2; 87086; 87205 ×2; 96361; 96365; 96375; 96376; 99285; A9270; J0295; J2704; J3010; J7030; J7120 ×2; 80048; 82800; 82803; 82962; 83735; 84443; 85027; 88112; 88305; 88307; 88313; 88341; 88342; 93306; 93306-26; 97110-GP; 97162-GP; 97530-GP; C9113; J0287; J1100; J1200; J1250; J1265; J1650; J1940; J2270; J2370; J2405; J3490; J7040; J7050